=== PATIENT | female | born 1980 | race Caucasian/White ===

== ENCOUNTER 2020-02-09 13:38 | Emergency (ER) | payer SELFPAY ==
--- NOTE | ~2020-02-09 | XR_ITS ---
EXAMINATION: XR chest 2V DATE: 02/09/2020 14:29 INDICATION: Chest tightness. TECHNIQUE: Frontal and lateral views of the chest were obtained. COMPARISON: Chest 2 views 06/11/2019, CT abdomen and pelvis 06/01/2019 FINDINGS: The chest demonstrates clear lungs without pneumonia, pleural effusion, or pneumothorax. Th e heart size is normal. IMPRESSION: 1. No acute cardiopulmonary disease. Reviewed, dictated and finalized at location B.
--- NOTE | ~2020-02-09 | CT_ITS ---
EXAMINATION: CT brain wo con EXAM DATE: 02/09/2020 14:59 INDICATION: Blurry vision, numbness and tingling in both upper extremities. Headache. TECHNIQUE: Spiral CT of the head was performed without contrast. Axial, coronal and sagittal images were reviewed. The dose-length product (DLP) for this examination was 605.33 mGy-cm. The exposure w as tailored according to patient size, and iterative reconstruction (ASIR) was used as additional dos e reduction technique. There is no prior study for comparison. FINDINGS: There is no acute intraparenchymal hemorrhage. No evidence of intraparenchymal brain mass lesion. No evidence of acute infarction. There is no mass effect or midline shift. The ventricles are normal in size. There are no extra-axial collections. There are no acute calvarial fractures. T he orbits are unremarkable. Soft tissue is unremarkable. The visualized sinuses and mastoid air keyon ls are well aerated. IMPRESSION: 1. No acute intracranial findings. Reviewed, dictated and finalized at location A.
[2020-02-09 13:45] VITALS: BP 142/72; PULSE 87; RESP 24; TEMP 36.8; O2SAT 100
--- NOTE | 2020-02-09 13:47 | ECG_ITS ---
Measurements Intervals [place] Rate: 78 P: 69 AR: 132 QRS: 60 QRSD: 89 T: 62 QT: 415 QTc: 474 Interpretive Statements SINUS RHYTHM BORDERLINE ST ABNORMALITY- ANTEROLATERAL LEADS BASELINE WANDER- I, III, AVL, AVF BORDERLINE ECG Electronically Signed On 02-09-2020 14:04:03 CDT by Santi Silva D.O.
[2020-02-09 14:19] LABS: Hematocrit 43.6 % (35.0-49.0); Hemoglobin 14.6 g/dL (12.0-15.0); Mean Corpuscular HGB Conc 33.5 g/dL (32.0-36.0); Mean Corpuscular Hemoglobin 31.3 pg (27.0-31.0); Mean Corpuscular Volume 93.4 fL (78.0-102.0); Mean Platelet Volume 10.7 fl (9.2-11.8); Platelet Count Result 203 K/mm3 (150-420); Red Blood Count 4.67 M/mm3 (4.20-5.40); Red Cell Distribution Width 13.1 % (11.6-14.4); White Blood Count 9.2 K/mm3 (4.8-10.8)
--- NOTE | 2020-02-09 14:21 | ED.ARRPALP ---
HPI - Arrhythmia/Palpitations General Chief Complaint: Arrhythmia/Palpitations Stated Complaint: both hand numb heart racing dizzy Source: patient and family Mode of arrival: ambulatory Limitations: no limitations History of Present Illness HPI narrative: This is a 39-year-old female that presents with her daughter with episodes of palpitations and pairs sees he was over right hand currently having point tenderness and the anterior chest with no shortness of breath no cough no fever chills no nausea vomiting no abdominal pain. Patient had a headache earlier today but currently is not having a headache, does have some blurry vision with no focal neurological deficits. Patient has a history of general anxiety disorder, and has been started on anti anxiety antidepressant medication by her primary care provider which she could not tolerate so currently she is not taking any medications. Symptoms started earlier today was felt some tightness in her chest with no shortness of breath and headache, with paresthesias of her right arm. Currently there is no fever chills, no diarrhea constipation no nausea vomiting she has no flank pain no dysuria. MD complaint: palpitations Onset (ago): hour(s) Duration: intermittent Severity: mild Context: occurred during rest Associated symptoms: chest pain, anxiety and paresthesias Related Data Allergies Allergy/AdvReac Type Severity Reaction Status Date / Time No Known Allergies Allergy Verified 02/09/20 13:48 Review of Systems Review of Systems: All systems reviewed & are unremarkable except as noted in HPI and below PMFSH Past Medical History Medical History Generalized anxiety disorder Exam Const: General: no acute distress and alert Orientation/consciousness: patient oriented x3 HENMT: Head: normal to inspection Eyes: Conjunctivae: conjunctivae normal Pupils: Equal, round and reactive pupils present EOM: EOMs intact bilaterally Direct Ophthalmoscopy: no photophobia Neck: Neck: normal visual inspection, no lymphadenopathy and no meningeal signs Chest: Other: reproducible chest pain left sternal area with palpation Resp: Effort & Inspection: normal respiratory effort Auscultation: clear to auscultation bilaterally Cardio: Rate: regular rate Rhythm: regular rhythm GI: Auscultation: normal bowel sounds : General: Yes no CVA tenderness Back/Spine/Pelvis: Back: no CVA tenderness Skin: General skin exam: normal color Rashes: no rashes Neuro: General: patient oriented x3, moves all extremities, no meningeal signs and no focal motor deficits Cranial nerves: Yes Nystagmus not present Speech: normal speech Gait exam (Neuro): Normal gait present Extrem: General: normal to inspection and no pedal edema Psych: Affect: Anxious affect present Thought content: Yes Normal thought content present Course Course Emergency Course: patient reassessment patient voices new symptoms every time someone walks into the exam room currently she is having a headache recently received IM Toradol, did receive Xanax p.o. feels like anxiety might be marginally improved, discussed hypokalemia with the patient and she voiced that this is nothing new for her, will give a dose of KCl 40 mEq 1 time and will send dose to her pharmacy and advised patient that all her results were relatively normal except for her low potassium. Advised patient to follow-up with her primary care physician as soon as possible for further evaluation and treatment. Vital Signs Vital signs: Vital Signs Temperature 36.8 C 02/09/20 13:45 Pulse Rate 87 02/09/20 13:45 Respiratory Rate 24 H 02/09/20 13:45 Blood Pressure 142/72 H 02/09/20 13:45 Pulse Oximetry 100 02/09/20 13:45 Temperature 36.8 C 02/09/20 13:45 Pulse Rate 80 02/09/20 14:29 Respiratory Rate 16 02/09/20 14:29 Blood Pressure 115/93 H 02/09/20 14:29 Pulse Oximetry 100 02/09/20 1
[2020-02-09] MEDS: ALPRAZolam 0.5 MG TABLET PO (14:28)
[2020-02-09 14:29] VITALS: BP 115/93; PULSE 80; RESP 16; O2SAT 100
[2020-02-09 14:33] LABS: D Dimer 0.22 mg/L (0.19-0.50)
[2020-02-09 14:42] LABS: Alanine Aminotransferase 18 U/L (14-59); Albumin Level 3.8 g/dL (3.4-5.0); Alkaline Phosphatase 56 U/L (46-116); Anion Gap 12 mmol/L (8-16); Aspartate Amino Transferase 16 U/L (15-37); Bilirubin,Total 0.5 mg/dL (0.00-1.00); Blood Urea Nitrogen 9 mg/dL (7-18); Calcium 8.7 mg/dL (8.5-10.1); Carbon Dioxide 23 mmol/L (21-32); Chloride 102 mmol/L (98-108); Estimated Glomerular Filt Rate > 60; Glucose 98 mg/dL (70-99); Osmolality Calculated 282 mOsm/kg (285-295); Sodium 137 mmol/L (136-145); Total Protein 7.1 g/dL (6.4-8.2)
[2020-02-09 14:43] LABS: Troponin I < 0.02 ng/mL (0.00-0.056)
[2020-02-09] MEDS: KETOROLAC (*BKC) 60 MG/2 ML VIAL IM (15:04)
[2020-02-09] MEDS: POTASSIUM CHLORIDE 20 MEQ TABLET 40 MEQ PO (15:17)
[2020-02-09 15:18] VITALS: BP 114/75; PULSE 94; O2SAT 99
== END 2020-02-09 15:23 | disposition home or self-care (01) ==
PROVIDERS: Emergency Provider Emergency Medicine; PCP Internal Medicine
DX: F41.9 Anxiety disorder, unspecified (principal); E87.6 Hypokalemia
CPT/HCPCS: 36415; 70450; 71046; 80053; 84484; 85027; 85380; 93005; 96372; 99284; A9270; J1885

== ENCOUNTER → 2020-09-08 01:11 | Outpatient (CLI) | payer OTHER, SELFPAY ==
[2020-09-08 18:53] LABS: SARS-CoV-2 RNA PCR Negative
== END ==
PROVIDERS: PCP Internal Medicine; Visit Provider Internal Medicine Gastroenterology
DX: Z01.812 Encounter for preprocedural laboratory examination (principal); Z20.822 Contact with and (suspected) exposure to COVID-19
CPT/HCPCS: C9803; U0003; U0005

== ENCOUNTER 2020-09-12 00:22 | Day surgery (SDC) | payer OTHER, SELFPAY ==
[2020-08-27 13:23] VITALS: BMI 26.6
--- NOTE | 2020-09-12 08:36 | WPDANESEPPF ---
Anes - Initial Pre Proc Eval Procedure: Operation Date: 09/12/20 10:00 Proposed Procedures p Esophagogastroduodenoscopy & Colonoscopy - Chay Euceda MD Date/Time: 09/12/20 08:36 Surgeon: Chay Euceda MD Pre Op Diagnosis: Diarrhea, GERD, Rectal Pain Patient Data Age: 39 Gender: F Height: 1.75 m Weight: 81.8 kg Allergies Allergy/AdvReac Type Severity Reaction Status Date / Time No Known Allergies Allergy Verified 09/12/20 08:58 Home Medications Medication Instructions Recorded Confirmed Type alprazolam [Xanax] 0.5 mg PO TID PRN #20 tablet 02/09/20 08/27/20 Rx potassium chloride 20 meq PO BID #10 tablet 02/09/20 08/27/20 Rx Patient hx anesthesia problems: none Family hx anesthesia problems: none PMFSH Past Medical History Medical History (Updated 09/11/20 @ 11:39 by Joaquín Serrato DO) Generalized anxiety disorder GERD without esophagitis Irregular heart beat Overweight (BMI 25.0-29.9) Rectal pain, chronic Tobacco dependence Surgical History Surgical History (Updated 09/11/20 @ 11:39 by Joaquín Serrato DO) History of hysterectomy Social History Social History Smoking packs per day: 0.5 Smoking cigarettes per day: 10.0 Years smoked: 20 Smoking pack-years: 10.00 Smoking status: Current every day smoker Tobacco type: cigarettes Substance use type: does not use Living arrangements: with family Gender identity (if verbalized by the patient): Female Spiritual care concerns: No Anes - Eval Final PreProcedure Day of Procedure 09/12/20 08:36 Patient weight: overweight Heart: regular rate and rhythm Lungs: clear to auscultation and normal air movement Airway: Mallampati scale class II Neurological: alert and oriented Last oral intake: >/= 8 hours ASA classification: II Emergent: no Anesthetic plan: proceed Anesthesia type and monitoring: general GIVS Informed Consent: The patient's anesthetic plan and its attendant risks and benefits were discussed with the patient/family/POA. Questions were solicited and answers provided to the satisfaction of the patient/family/POA.
[2020-09-12 08:59] VITALS: BP 130/85; PULSE 85; RESP 16; TEMP 36.8; O2SAT 100; BMI 26.4
[2020-09-12] MEDS: LACTATED RINGERS 1,000 ML 150 ML IV CONT (09:10)
--- NOTE | 2020-09-12 10:19 | PM.HPGS ---
History of Present Illness History of Present Illness Consent: Risks, benefits, and alternatives have been discussed and questions answered. Patient agrees to proceed with procedure. Chief complaint: Diarrhea, GERD, Rectal Pain Narrative: Vilma Diaz is a 39 year old female with gerd but also chronic diarrhea, last 4 months with rectal discomfort using nsaid's as needed because of pain. Review of Systems Constitutional: Constitutional: Denies headache(s) and Denies weakness Eyes: Eyes: Denies blurry vision ENT: Reports Normal hearing present, Denies headache(s) and Denies neck pain Cardiovascular: Cardiovascular: Denies chest pain and Denies dyspnea Respiratory: Respiratory: Denies dyspnea Gastrointestinal: Gastrointestinal: Reports no additional gastrointestinal complaints Genitourinary: Genitourinary: Denies dysuria Musculoskeletal: Musculoskeletal: Denies neck pain Integumentary/Breasts: Skin/Breast: Denies dry skin Neurologic: Reports Normal hearing present, Denies headache(s) and Denies weakness Psychiatric: Psychiatric: Denies anxiety Endocrine: Endocrine: Denies change in body appearance Hematologic/Lymphatic: Hematologic/Lymphatic: Denies easy bleeding Allergic/Immunologic: Allergic/Immunologic: Denies urticaria PMFSH Past Medical History Medical History (Updated 09/12/20 @ 10:20 by Chay Euceda MD) Diarrhea Generalized anxiety disorder GERD without esophagitis Irregular heart beat Overweight (BMI 25.0-29.9) Rectal pain, chronic Tobacco dependence Surgical History Surgical History (Updated 09/11/20 @ 11:39 by Joaquín Serrato DO) History of hysterectomy Social History Social History Smoking packs per day: 0.5 Smoking cigarettes per day: 10.0 Years smoked: 20 Smoking pack-years: 10.00 Smoking status: Current every day smoker Tobacco type: cigarettes Substance use type: does not use Living arrangements: with family Gender identity (if verbalized by the patient): Female Spiritual care concerns: No Meds Home Medications and Allergies Home Medications Medication Instructions Recorded Confirmed Type alprazolam [Xanax] 0.5 mg PO TID PRN #20 tablet 02/09/20 08/27/20 Rx potassium chloride 20 meq PO BID #10 tablet 02/09/20 08/27/20 Rx Allergies Allergy/AdvReac Type Severity Reaction Status Date / Time No Known Allergies Allergy Verified 09/12/20 08:58 Vital Signs Vital Signs - 24 hr 09/12/20 08:59 Temperature 98.2 F Pulse Rate 85 Respiratory Rate 16 Blood Pressure 130/85 Pulse Oximetry 100 Exam Const: General: comfortable and no acute distress HENMT: General nose exam: Normal nares present Eyes: General: appearance normal, both eyes and all related structures Neck: Neck: no JVD Resp: Auscultation: clear to auscultation bilaterally Cardio: Rate: regular rate Rhythm: regular rhythm GI: Inspection: non-distended GI Palp: Yes Soft to palpation Skin: General skin exam: normal color Neuro: General: gait normal Speech: normal speech Extrem: General: normal to inspection Psych: Mental Status: mental status grossly normal Assessment and Plan Assessment and plan (1) GERD without esophagitis: Code(s): K21.9 - Gastro-esophageal reflux disease without esophagitis Status: Acute Assessment and Plan: egd with bx (2) Rectal pain, chronic: Code(s): K62.89 - Other specified diseases of anus and rectum; G89.29 - Other chronic pain Status: Acute Assessment and Plan: colonoscopy (3) Diarrhea: Code(s): R19.7 - Diarrhea, unspecified Status: Acute Assessment and Plan: assess for celiac, microscopic colitis, etc
[2020-09-12] MEDS: BENZOCAINE (*SP) 60 ML SPRAY CAN (HURRICAINE) 1 SPRAY MUCOUS MEM (10:21)
[2020-09-12 10:50] VITALS: BP 93/49; PULSE 66; RESP 22; O2SAT 100
[2020-09-12 11:00] VITALS: BP 116/65; PULSE 75; RESP 16; O2SAT 100
[2020-09-12 11:10] VITALS: BP 120/75; PULSE 61; RESP 13; O2SAT 100
== END 2020-09-12 11:18 | disposition home or self-care (01) ==
PROVIDERS: PCP Internal Medicine; Visit Provider Internal Medicine Gastroenterology
PROC: 0DJ08ZZ Inspection of Upper Intestinal Tract, Via Natural or Artificial Opening Endoscopic (ICD-10-PCS; CPT 43235; principal; 2020-09-12 10:00)
DX: K52.832 Lymphocytic colitis (principal); K52.831 Collagenous colitis; K62.89 Other specified diseases of anus and rectum; K64.8 Other hemorrhoids; K31.89 Other diseases of stomach and duodenum; K21.9 Gastro-esophageal reflux disease without esophagitis; K63.0 Abscess of intestine; K44.9 Diaphragmatic hernia without obstruction or gangrene; F41.1 Generalized anxiety disorder; F17.210 Nicotine dependence, cigarettes, uncomplicated
CPT/HCPCS: 45380; 43239; 88305; C9803; J2001; J2704; J7120; U0003; U0005

== ENCOUNTER 2023-12-18 10:45 | Outpatient (CLI) | payer OTHER, SELFPAY ==
--- NOTE | ~2023-12-18 | MM_ITS ---
EXAMINATION: MM screening jeovanny BI w zully HISTORY: Screening TECHNIQUE: Craniocaudal and mediolateral oblique 3-D tomosynthesis images were obtained and synthetic 2-D images were generated. CAD analysis was submitted and interpreted. COMPARISON: No prior mammogram is available for comparison at this institution. BREAST PARENCHYMAL COMPOSITION: Not dense: There are scattered areas of fibroglandular density. FINDINGS: There are no suspicious masses, calcifications or architectural distortion in the right frank ast to suggest malignancy. There are asymmetries centered in the upper outer quadrant of the left frank ast. There are no suspicious calcifications or architectural distortion. IMPRESSION: 1. Left breast asymmetries. 2. Additional mammographic views and possible breast ultrasound are recommended. BI-RADS Category 0: Incomplete: Needs additional imaging evaluation. Reviewed, dictated and finalized at location B. IMPRESSION: 1. Left breast asymmetries. 2. Additional mammographic views and possible breast ultrasound are recommended . BI-RADS Category 0: Incomplete: Needs additional imaging evaluation.
[2023-12-18 11:19] LABS: Hemoglobin 13.9 g/dL (12.0-15.0); Mean Corpuscular HGB Conc 33.9 g/dL (32-36); Mean Corpuscular Hemoglobin 31.2 pg (27.0-31.0); Mean Corpuscular Volume 91.9 fL (78.0-102.0); Platelet Count Result 226 K/mm3 (150-420); Red Blood Count 4.46 M/mm3 (4.20-5.40); Red Cell Distribution Width 13.2 % (11.6-14.4); White Blood Count 7.9 K/mm3 (4.8-10.8)
[2023-12-18 11:23] LABS: Appearance Urine Clear (Clear); Bilirubin Urine Negative (Negative); Blood Urine Negative (Negative); Color Urine Light Yellow (Yellow); Glucose Urine UA Negative (Negative); Ketones Urine Negative (Negative); Leukocyte Esterase Ur Negative (Negative); Nitrate Urine Negative (Negative); Protein Urine Negative (Negative); Urobilinogen Urine 0.2 mg/dL (0.2-1.0); pH Urine 6.5 (5.0-8.0)
[2023-12-18 11:24] LABS: Add Urine Microscopic? NO
[2023-12-18 11:58] LABS: Alanine Aminotransferase 26 U/L (14-59); Albumin Level 4.1 g/dL (3.4-5.0); Alkaline Phosphatase 51 U/L (46-116); Anion Gap 8 mmol/L (4-12); Aspartate Amino Transferase 15 U/L (15-37); Bilirubin,Total 0.5 mg/dL (0.00-1.00); Blood Urea Nitrogen 11 mg/dL (7-18); Calcium 9.1 mg/dL (8.5-10.1); Carbon Dioxide 26 mmol/L (21-32); Chloride 103 mmol/L (98-108); Cholesterol 228 mg/dL (0-200); Estimated Glomerular Filt Rate > 60; Free T4 Free Thyroxine 0.98 ng/dL (0.76-1.46); Glucose 92 mg/dL (70-99); HDL Direct 70 mg/dL (40-60); LDL Cholesterol Calculated 144 mg/dL (<130); Osmolality Calculated 283 mOsm/kg (285-295); Potassium 4.1 mmol/L (3.5-5.1); Sodium 137 mmol/L (136-145); Thyroid Stimulating Hormone 2.31 uIU/mL (0.36-3.74); Total Protein 7.1 g/dL (6.4-8.2); Triglycerides 71 mg/dL (0-150)
== END 2023-12-18 10:46 | disposition home or self-care (01) ==
LOC: CHSIMG 10:50
PROVIDERS: PCP Internal Medicine; Visit Provider Internal Medicine
DX: Z00.00 Encounter for general adult medical examination without abnormal findings (principal); Z12.31 Encounter for screening mammogram for malignant neoplasm of breast; R92.8 Other abnormal and inconclusive findings on diagnostic imaging of breast
CPT/HCPCS: 36415; 77063; 77067; 80053; 80061; 81003; 84439; 84443; 85027

== ENCOUNTER 2023-12-25 09:38 | Outpatient (CLI) | payer OTHER, SELFPAY ==
--- NOTE | ~2023-12-25 | MM_ITS ---
EXAMINATION: MM diagnostic jeovanny LT w zully HISTORY: Upper, outer left breast asymmetry TECHNIQUE: Additional 3-D tomosynthesis spot compression images of the left breast were performed and synthetic 2-D images were generated. CAD analysis was submitted and interpreted. COMPARISON: 12/18/2023 FINDINGS: There are scattered fibroglandular densities. The area of asymmetric density at the upper, outer left breast demonstrates relative effacement with spot compression. No persistent mass lesion or suspicious distortion seen. No suspicious microcalcifi cations. IMPRESSION: No mammographic evidence for malignancy. BI-RADS Category 1: Negative Reviewed, dictated and finalized at location .
== END 2023-12-25 09:39 | disposition home or self-care (01) ==
LOC: CHSIMG 09:42
PROVIDERS: PCP Internal Medicine; Visit Provider Internal Medicine
DX: R92.8 Other abnormal and inconclusive findings on diagnostic imaging of breast (principal)
CPT/HCPCS: 77061; 77065; G0279

== ENCOUNTER 2024-04-03 22:34 | Emergency (ER) | payer OTHER, SELFPAY ==
[2024-04-03] VITALS (7 sets, daily range): BP systolic 114–143; BP diastolic 74–79; PULSE 56–83; RESP 16–18; TEMP 36.6; O2SAT 96–100
--- NOTE | ~2024-04-03 | XR_ITS ---
Clinical Indication: Chest pain PA and lateral views of the chest: Comparison: 02/09/2020 Findings: The lungs are clear, without evidence of focal consolidation or pleural effusion. Cardiome diastinal silhouette is within normal limits. Bones and soft tissues are unremarkable. Impression: Normal chest. Reviewed, dictated and finalized at location . Impression: Normal chest.
--- NOTE | ~2024-04-03 | CT_ITS ---
CT of the Abdomen and Pelvis: Indication: Abdominal pain Technique: 2.5 mm axial scans were obtained through the abdomen and pelvis following intravenous adm inistration of 100 cc of Omnipaque 350. Dose reduction technique was used on this scan by utilizing a utomated exposure control and iterative reconstruction technique. The dose-length product (DLP) was 8 09.54 mGy-cm. Findings: Scans through the lung bases are unremarkable. The liver, spleen, pancreas, gallbladder, left adrenal gland, and kidneys are within normal limits. 1 0 mm right adrenal nodule present, indeterminate. No evidence of aortic aneurysm. No lymphadenopathy . No bowel obstruction or bowel wall thickening. There is no evidence to suggest acute appendicitis. Images through the pelvis were performed. Urinary bladder unremarkable. No pelvic mass seen. No ascit es. Impression: No acute abnormality. 10 mm right adrenal nodule, indeterminate, statistically most likely adenoma. Reviewed, dictated and finalized at [facility]. Impression: No acute abnormality. 10 mm right adrenal nodule, indeterminate, statistically most likely adenoma.
--- NOTE | 2024-04-03 22:43 | ECG_ITS ---
Test Date: 2024-04-03 22:49:37 Measurements Intervals [place] Rate: 67 P: 51 [place]: 145 QRS: 15 QRSD: 85 T: 33 QT: 415 QTc: 440 Interpretive Statements SINUS RHYTHM LOW-VOLTAGE OTHERWISE NORMAL ELECTROCARDIOGRAM No previous ECG available for comparison Electronically Signed On 04-04-2024 07:39:19 CDT by Todd Soria M.D.
--- NOTE | 2024-04-03 22:45 | ED.CHESTPAIN ---
HPI - Chest Pain General Chief Complaint: Chest Pain Stated Complaint: Chest and Back Pain Time Seen by Provider: 04/03/24 22:42 Source: patient Mode of arrival: ambulatory Limitations: no limitations History of Present Illness HPI narrative: Patient is a 43-year-old female with mid epigastric pain slightly into the chest area for the past hour. She took something for acid reflux and it did not help. She does have recurrent acid reflux. She has a history of a HIDA scan showing decreased ejection fraction of her gallbladder however they left the gallbladder in at this time without stones noted. Family history is strong for 50s and 60s early heart attacks. Patient has anxiety. MD complaint: chest pain Onset (ago): hour(s) (1) Timing of current episode: constant Prior episodes: Yes Onset: during rest and after eating Pain location: epigastric Pain radiation: back ( Mid to lower back) Severity: moderate Pain scale (0-10): 5 Quality: sharp Relieving factors: nothing Exacerbating factors: nothing Context: other ( patient has history of gallbladder disease) Treatment prior to arrival: none Risk Factors Coronary artery disease risk factors: hyperlipidemia Thoracic aortic dissection risk factors: none Related Data On Oral Contraceptives: No Home Medications Medication Instructions Recorded Confirmed buspirone 5 mg tablet 5 mg PO BID 04/03/24 04/03/24 sertraline 50 mg tablet 50 mg PO DAILY 04/03/24 04/03/24 Allergies Allergy/AdvReac Type Severity Reaction Status Date / Time No Known Allergies Allergy Verified 09/12/20 08:58 Review of Systems Review of Systems: All systems reviewed & are unremarkable except as noted in HPI and below Constitutional: Constitutional: Reports no additional constitutional complaints Eyes: Eyes: Reports no additional eye complaints ENT: Reports system reviewed and no additional complaints, except as documented Cardiovascular: Cardiovascular: Reports no additional cardiovascular complaints Respiratory: Respiratory: Reports no additional respiratory complaints Gastrointestinal: Gastrointestinal: Reports no additional gastrointestinal complaints Genitourinary: Genitourinary: Reports no additional female genitourinary complaints Musculoskeletal: Musculoskeletal: Reports no additional musculoskeletal complaints Integumentary/Breasts: Skin/Breast: Reports system reviewed and no additional complaints, except as docu Neurologic: Reports system reviewed and no additional complaints, except as documented Psychiatric: Psychiatric: Reports no additional psychiatric complaints Endocrine: Endocrine: Reports no additional endocrine complaints Hematologic/Lymphatic: Hematologic/Lymphatic: Reports no additional hematologic/lymphatic complaints Allergic/Immunologic: Allergic/Immunologic: Reports no additional allergic/immunologic complaints PMFSH Past Medical History Medical History Diarrhea Generalized anxiety disorder GERD without esophagitis Irregular heart beat Overweight (BMI 25.0-29.9) Rectal pain, chronic Tobacco dependence Surgical History Surgical History History of hysterectomy Social History Social History Smoking packs per day: 0.5 Smoking cigarettes per day: 10.0 Years smoked: 20 Smoking pack-years: 10.00 Smoking status: Current every day smoker Tobacco type: cigarettes Substance use type: does not use Living arrangements: with family Gender identity (if verbalized by the patient): Female Spiritual care concerns: No Exam Const: General: healthy appearing Nutritional Appearance: well nourished Orientation/consciousness: patient oriented x3 HENMT: Head: normal to inspection Ears: external ears normal Face/Nose/Sinus: Normal external nose present Eyes: Conjunctivae: conjuncti
[2024-04-03] MEDS: KETOROLAC 15 MG/ML VIAL (*BKC) IV PUSH (23:03)
[2024-04-03 23:16] LABS: Basophils Absolute Auto 0.06 K/mm3 (0.00-0.10); Basophils Percent Auto 0.8 % (0.0-1.0); Eosinophils Absolute Auto 0.41 K/mm3 (0.02-0.50); Eosinophils Percent Auto 5.7 % (1.0-6.0); Hematocrit 36.7 % (35.0-49.0); Hemoglobin 12.5 g/dL (12.0-15.0); Immature Granulocyte Absolute 0.02 K/mm3 (0.00-0.00); Immature Granulocyte Percent A 0.3 % (0.0-0.0); Lymphocytes Absolute Auto 2.67 K/mm3 (1.10-4.50); Lymphocytes Percent Auto 37.1 % (18.0-42.0); Mean Corpuscular HGB Conc 34.1 g/dL (32-36); Mean Corpuscular Hemoglobin 30.5 pg (27.0-31.0); Mean Corpuscular Volume 89.5 fL (78.0-102.0); Mean Platelet Volume 10.5 fl (9.2-11.8); Monocytes Absolute Auto 0.67 K/mm3 (0.10-0.90); Monocytes Percent Auto 9.3 % (2.0-11.0); Neutrophils Absolute Auto 3.36 K/mm3 (1.70-7.20); Neutrophils Percent Auto 46.8 % (50.0-70.0); Platelet Count Result 228 K/mm3 (150-420); Red Cell Distribution Width 12.9 % (11.6-14.4); White Blood Count 7.2 K/mm3 (4.8-10.8)
[2024-04-03 23:25] LABS: Add Urine Microscopic? NO; Appearance Urine Clear (Clear); Bilirubin Urine Negative (Negative); Blood Urine Negative (Negative); Color Urine Light Yellow (Yellow); Glucose Urine UA Negative (Negative); Ketones Urine Negative (Negative); Leukocyte Esterase Ur Negative LEU/UL (Negative); Nitrate Urine Negative (Negative); Protein Urine Negative (Negative); Specific Grav Ur <= 1.005 (1.010-1.020); Urobilinogen Urine 0.2 mg/dL (0.2-1.0)
[2024-04-03 23:33] LABS: Lactic Acid Reflex 0.5 mmol/L (0.4-2.0)
[2024-04-03 23:35] LABS: Alanine Aminotransferase 18 U/L (14-59); Albumin Level 3.6 g/dL (3.4-5.0); Alkaline Phosphatase 87 U/L (46-116); Anion Gap 7 mmol/L (4-12); Aspartate Amino Transferase 12 U/L (15-37); Bilirubin,Total 0.3 mg/dL (0.00-1.00); Blood Urea Nitrogen 13 mg/dL (7-18); Calcium 8.9 mg/dL (8.5-10.1); Carbon Dioxide 25 mmol/L (21-32); Chloride 105 mmol/L (98-108); Estimated CRCL calculation 92 ml/min; Estimated Glomerular Filt Rate > 60; Glucose 102 mg/dL (70-99); Lipase 48 U/L (16-77); NT Pro B Type Natriuretic Pept 115 pg/mL (0-125); Osmolality Calculated 284 mOsm/kg (285-295); Partial Thromboplastin Time 27.3 Sec (23.9-30.70); Potassium 3.4 mmol/L (3.5-5.1); Prothrombin Time 11.1 Seconds (9.50-12.1); Sodium 137 mmol/L (136-145); Total Protein 6.4 g/dL (6.4-8.2); Troponin I 4.3 ng/L (0.00-60.4)
[2024-04-04 00:06] VITALS: BP 131/77; PULSE 68; RESP 15; O2SAT 100
--- NOTE | 2024-04-04 00:09 | PC.NURSE ---
Pt resting, no c/o at this time, VSS, continuing to monitor, will await CT scan report, lights dimmed, call montes at side.
[2024-04-04 00:31] VITALS: BP 113/68; PULSE 53; RESP 15; O2SAT 99
[2024-04-04] MEDS: POTASSIUM CHLORIDE 20 MEQ ER TABLET PO (01:47)
[2024-04-04 01:51] VITALS: BP 112/68; PULSE 74; RESP 16; TEMP 36.6; O2SAT 100
== END 2024-04-04 01:51 | disposition home or self-care (01) ==
PROVIDERS: Emergency Provider Emergency Medicine; PCP Internal Medicine
DX: R10.13 Epigastric pain (principal); F17.210 Nicotine dependence, cigarettes, uncomplicated; Z79.899 Other long term (current) drug therapy
CPT/HCPCS: 36415; 71046; 74177; 80053; 81003; 83605; 83690; 83880; 84484; 85025; 85610; 85730; 93005; 96374; 99284; A9270; J1885; Q9967

== ENCOUNTER 2024-06-07 17:10 | Outpatient (CLI) | payer OTHER, SELFPAY ==
[2024-06-07 17:22] LABS: Basophils Absolute Auto 0.05 K/mm3 (0.00-0.10); Basophils Percent Auto 0.7 % (0.0-1.0); Eosinophils Percent Auto 2.7 % (1.0-6.0); Hematocrit 37.3 % (35.0-49.0); Hemoglobin 12.5 g/dL (12.0-15.0); Immature Granulocyte Absolute 0.02 K/mm3 (0.00-0.00); Immature Granulocyte Percent A 0.3 % (0.0-0.0); Lymphocytes Absolute Auto 2.29 K/mm3 (1.10-4.50); Lymphocytes Percent Auto 30.4 % (18.0-42.0); Mean Corpuscular HGB Conc 33.5 g/dL (32-36); Mean Corpuscular Hemoglobin 30.2 pg (27.0-31.0); Mean Corpuscular Volume 90.1 fL (78.0-102.0); Mean Platelet Volume 10.2 fl (9.2-11.8); Monocytes Absolute Auto 0.73 K/mm3 (0.10-0.90); Monocytes Percent Auto 9.7 % (2.0-11.0); Neutrophils Absolute Auto 4.24 K/mm3 (1.70-7.20); Neutrophils Percent Auto 56.2 % (50.0-70.0); Platelet Count Result 220 K/mm3 (150-420); Red Blood Count 4.14 M/mm3 (4.20-5.40); Red Cell Distribution Width 13.2 % (11.6-14.4); White Blood Count 7.5 K/mm3 (4.8-10.8)
[2024-06-07 18:17] LABS: Alanine Aminotransferase 24 U/L (14-59); Albumin Level 3.8 g/dL (3.4-5.0); Alkaline Phosphatase 71 U/L (46-116); Anion Gap 8 mmol/L (4-12); Aspartate Amino Transferase 14 U/L (15-37); Bilirubin,Total 0.3 mg/dL (0.00-1.00); Blood Urea Nitrogen 9 mg/dL (7-18); Calcium 8.8 mg/dL (8.5-10.1); Carbon Dioxide 28 mmol/L (21-32); Chloride 104 mmol/L (98-108); Estimated Glomerular Filt Rate > 60; Glucose 88 mg/dL (70-99); Osmolality Calculated 287 mOsm/kg (285-295); Potassium 3.9 mmol/L (3.5-5.1); Sodium 140 mmol/L (136-145); Total Protein 6.6 g/dL (6.4-8.2)
== END 2024-06-07 17:11 | disposition home or self-care (01) ==
LOC: CHSLAB 17:11
PROVIDERS: PCP Internal Medicine; Visit Provider Internal Medicine
DX: R10.9 Unspecified abdominal pain (principal)
CPT/HCPCS: 36415; 80053; 83605; 85025

== ENCOUNTER 2024-06-07 19:38 | Emergency (ER) | payer OTHER, SELFPAY ==
--- NOTE | ~2024-06-07 | CT_ITS ---
EXAMINATION: CT abdomen pelvis wo con DATE: 06/07/2024 20:35 INDICATION: RIGHT flank pain/NAUSEA TECHNIQUE: Computed tomography (CT) of the abdomen and pelvis was performed without intravenous contr ast. Automated exposure control and iterative reconstruction technique were employed. The dose-length product was 814.31 mGy-cm. COMPARISON: 04/04/2024. FINDINGS: Lower thorax: Unremarkable Liver: Normal. Biliary/Gallbladder: Gallbladder is normal. No bile duct dilation. Pancreas: No mass or duct dilation. Spleen: Normal. Adrenals: Right adrenal adenoma. Kidneys: No suspicious mass, obstructing stone, or hydronephrosis. Tiny left midpole AML. Punctate bi lateral calcifications. GI tract: No small or large bowel dilation. Normal appendix. Mesentery/Peritoneum: No ascites, mass, or free air. Retroperitoneum: No mass. Atherosclerotic abdominal aortic and/or arterial calcifications. Pelvis: Absent uterus. Normal urinary bladder. 8.6 x 5.5 cm multiloculated cystic and solid right adn exal lesion, likely associated with the right ovary. Cystic thin-walled structure in the left adnexa extending to the midline deep pelvis, measuring up to 7.6 cm, with thin wild, conforming to the shap e of adjacent structures, likely associated with the left ovary. Soft Tissues: Soft tissues and body wall unremarkable. Bones: No acute osseous finding. IMPRESSION: 8.6 cm multiloculated cystic and solid right adnexal mass. An ovarian mass considered most likely. Tu iglesia-ovarian abscess considered less likely given the lack of inflammatory change. 7.6 cm cystic structure in the left and midline pelvis possibly associated with left ovary, may repre sent a peritoneal inclusion cyst. Recommend gynecology or gynecology-oncology consultation. Consider pelvic MRI without and with contra st. Reviewed, dictated and finalized at location K. NILE PROBATION OFFICER IMPRESSION: 8.6 cm multiloculated cystic and solid right adnexal mass. An ovarian mass cons idered most likely. Tubo-ovarian abscess considered less likely given the lack of inflammatory change. 7.6 cm cystic structure in the left and midline pelvis possibly associated with left ovary, may represent a peritoneal inclusion cyst. Recommend gynecology or gynecology-oncology consultation. Consider pelvic MRI w ithout and with contrast.
--- NOTE | 2024-06-07 20:04 | ED_ITS ---
HPI - Abdominal Pain General Chief Complaint: Urogenital-Female Stated Complaint: abd pain Time Seen by Provider: 06/07/24 19:55 Source: patient Mode of arrival: ambulatory Limitations: no limitations History of Present Illness HPI narrative: 43 year old female presents to the Emergency Department complaining of right lower flank pain to right lower abdomen. Onset today. No prior history of. No vomiting, diarrhea, constipation, urinary tract symptoms. Had OP labs and thought to possibly have kidney stone per patient. MD elicited complaint: abdominal pain and flank pain Onset (ago): hour(s) Pain Consistency: constant Location: RLQ and R flank Severity: moderate Exacerbating factors: nothing Relieving factors: nothing Related Data Patient : No Home Medications ?Medication ?Instructions ?Recorded ?Confirmed ?Last Taken ?Type buspirone 5 mg tablet 5 mg PO BID 04/03/24 04/03/24 Unknown History sertraline 50 mg tablet 50 mg PO DAILY 04/03/24 04/03/24 Unknown History Allergies Allergy/AdvReac Type Severity Reaction Status Date / Time No Known Allergies Allergy Verified 09/12/20 08:58 Review of Systems Review of Systems: All systems reviewed & are unremarkable except as noted in HPI and below Constitutional: Constitutional: Reports as per HPI, Denies chills and Denies fever(s) Eyes: Eyes: Reports as per HPI ENT: Reports system reviewed and no additional complaints, except as documented Cardiovascular: Cardiovascular: Reports as per HPI Respiratory: Respiratory: Reports as per HPI Gastrointestinal: Gastrointestinal: Reports as per HPI, Reports abdominal pain, Denies constipation, Denies diarrhea, Denies nausea and Denies vomiting Genitourinary: Genitourinary: Reports no additional female genitourinary complaints and Reports flank pain Musculoskeletal: Musculoskeletal: Reports no additional musculoskeletal complaints Integumentary/Breasts: Skin/Breast: Reports system reviewed and no additional complaints, except as docu Neurologic: Reports system reviewed and no additional complaints, except as documented Psychiatric: Psychiatric: Reports no additional psychiatric complaints Endocrine: Endocrine: Reports no additional endocrine complaints Hematologic/Lymphatic: Hematologic/Lymphatic: Reports no additional hematologic/lymphatic complaints Allergic/Immunologic: Allergic/Immunologic: Reports no additional allergic/immunologic complaints PMFSH Past Medical History Medical History Diarrhea Irregular heart beat Rectal pain, chronic GERD without esophagitis Overweight (BMI 25.0-29.9) Tobacco dependence Generalized anxiety disorder Surgical History Surgical History History of hysterectomy Social History Social History Smoking packs per day: 0.5 Smoking cigarettes per day: 10.0 Years smoked: 20 Smoking pack-years: 10.00 Smoking status: Current every day smoker Tobacco type: cigarettes Substance use type: does not use Living arrangements: with family Gender identity (if verbalized by the patient): Female Spiritual care concerns: No Exam Const: General: healthy appearing Nutritional Appearance: well nourished Orientation/consciousness: patient oriented x3 Limitations: no limitations Other: mild to moderate distress HENMT: Head: normal to inspection Ears: external ears normal Face/Nose/Sinus: Normal external nose present Face and sinus: normal facial exam Mouth: Yes Normal oral and palatal mucosa present Eyes: Conjunctivae: conjunctivae normal Pupils: Equal, round and reactive pupils present EOM: EOMs intact bilaterally Direct Ophthalmoscopy: no photophobia Neck: Neck: normal visual inspection Chest: Chest palpation & inspection: normal inspection of the chest Resp: Effort & Inspection: normal respiratory effort Auscultation: clear to auscultation bilaterally Cardio: Rate: regular rate Rhythm: regular rhythm GI: Inspection: non-distended GI Palp: Yes Soft to palpation and No Tenderness to palpation present (GI) : General: Yes bladder normal to palpation Back/Spine/Pelvis: Back: no CVA tenderness Skin: General skin exam: normal color Rashes: no rashes Neuro: General: patient oriented x3 and moves all extremities Speech: normal speech Gait exam (Neuro): Normal gait present Other: grossly normal Extrem: General: normal to inspection Psych: Mental Status: mental status grossly normal Course Course Emergency Course: 43 y/o female presents to the ED c/o right lower flank and abdominal pain. Onset today. No prior history of. Saw PCP and had OP lab. PE: mod distress, no CVA tenderness to percussion or abdominal tenderness to palpation OP Lab: CBC: H/H 12.5/37.4, Plt 220; wbc 7.5 with 56 S, 30 L, 10 M CMP: Na 140, K 3.9, Cl 104, CO2 28, Glc 88, BUN 9, Cr 0.75; LFT's normal Tx: NS w/o, Zofran 4 mg IVP, Dilaudid 1 mg IVP UA: CT Abd/Pelvis: 8.6 cm multiloculated cystic /solid R adnexal mass [ovarian mass considered most likely and tubo-ovarian abscess less likely, given lack of inflammatory change]. 7.6 cm cystic structure in the left and midline pelvis [possibly assoc L ovary] may represent a peritoneal inclusion cyst. ([id number]) [place] contacted for DISHWASHER BUSSER consult ([id number]) Voice mail message left for Dr. De La Cruz (DISHWASHER BUSSER) ([id number]) discussed with Dr. De La Cruz. Will transfer patient to [place] and admit for work up. ([id number]) Bed assigned [[id number]]. EMS notified of transfer Transfer Transfered to: [place] Transportation: ALS Transfer rationale: DISHWASHER BUSSER evaluation and work up Accepting physician: Jono MDM - Abdominal Pain MDM Narrative Medical decision making narrative: Discussed with Dr. De La Cruz (Boring And Filling Machine Operator). Report given and discussed potential causes and further w/u. Since patient's pain is not yet controlled, she will be transferred to [place] for admission and work up. She has an 8.6 cm cystic /solid mas which most likely is ovarian mass. Due to the more sudden onset, would consider torsion secondary to torque from mass. She also has 7.6 cm cystic structure that may be associated with left ovary. Differential Diagnosis Differential diagnosis: Likely abdominal pain and other (ovarian mass, tubo- ovarian abscess, ovarian torsion, ovarian cyst) Medical Records Attestation: I reviewed the patient's medical records. Lab Data Attestation: I reviewed the patient's lab results. Labs: Lab Results 06/07/24 Range/Units 23:20 Urine Color Pending Urine Appearance Pending Urine pH Pending Ur Specific [place] Pending Urine Protein Pending Urine Glucose (UA) Pending Urine Ketones Pending Ur Blood (Man) Pending Urine Nitrate Pending Urine Bilirubin Pending Urine Urobilinogen Pending Ur Leukocyte Esterase Pending Imaging Data Radiologist's impression: ITS Impressions Abdomen/Pelvis CT 06/07/24 20:43 IMPRESSION: 8.6 cm multiloculated cystic and solid right adnexal mass. An ovarian mass considered most likely. Tubo-ovarian abscess considered less likely given the lack of inflammatory change. 7.6 cm cystic structure in the left and midline pelvis possibly associated with left ovary, may represent a peritoneal inclusion cyst. Recommend gynecology or gynecology-oncology consultation. Consider pelvic MRI without and with contrast. Discharge Plan Discharge Clinical Impression: Abdominal pain in female patient, Mass of right ovary Patient Disposition: Acute Care Hospital Condition: Stable Patient Language: German Prescriptions: No Action buspirone 5 mg Tablet 5 mg PO BID sertraline 50 mg tablet 50 mg PO DAILY Follow-up/Referrals: Elmer De La Cruz MD [Physician] - Ibrahima Phipps MD [Primary Care Provider] - Time of Disposition: 22:35
[2024-06-07] MEDS: ONDANSETRON INJ 4 MG/2 ML VIAL IV PUSH (20:38)
[2024-06-07] MEDS: HYDROmorphone HCL INJ (*CRX) 2 MG/ML VIAL 1 MG IV PUSH ×2 (20:39→22:49)
[2024-06-07] MEDS: SODIUM CHLORIDE 0.9% IV 1,000 ML 999 ML IV CONT (20:40)
[2024-06-07] MEDS: KETOROLAC 30 MG/ML VIAL (*BKC) IV PUSH (21:51)
[2024-06-07 23:19] VITALS: TEMP 37
[2024-06-07 23:28] LABS: Add Urine Microscopic? NO; Appearance Urine Clear (Clear); Bilirubin Urine Negative (Negative); Blood Urine Negative (Negative); Color Urine Light Yellow (Yellow); Glucose Urine UA Negative (Negative); Ketones Urine 1+ (Negative); Leukocyte Esterase Ur Negative (Negative); Nitrate Urine Negative (Negative); Protein Urine Negative (Negative); Specific Grav Ur >= 1.030 (1.010-1.020); Urobilinogen Urine 0.2 mg/dL (0.2-1.0); pH Urine 5.5 (5.0-8.0)
[2024-06-07 23:40] VITALS: BP 128/67; PULSE 66; RESP 18; TEMP 37; O2SAT 100
== END 2024-06-07 23:59 | disposition short-term general hospital (02) ==
PROVIDERS: Emergency Provider Emergency Medicine; PCP Internal Medicine
DX: R10.31 Right lower quadrant pain (principal); N83.8 Other noninflammatory disorders of ovary, fallopian tube and broad ligament; F17.210 Nicotine dependence, cigarettes, uncomplicated
CPT/HCPCS: 74176; 81003; 96361; 96374; 96375; 99285; J1171; J1885; J2405; J7030

== ENCOUNTER 2024-06-08 01:38 | Observation (INO) | payer OTHER, SELFPAY ==
--- NOTE | ~2024-06-08 | US_ITS ---
US pelvic complete w TV Ordering provider: Elmer De La Cruz MD History: . ovarian mass . Comparison: None. Technique: Transabdominal and endovaginal ultrasound of the pelvis (Doppler ultrasound interrogation techniques used as needed for this exam.) FINDINGS: UTERUS: Removed surgically. CUL DE SAC: Significant free fluid is seen in the pelvis. Complex tubular structure is seen in the right adnexa which measures 11.3 x 4.7 x 5.3 which is most l ikely a mass. present. Cyst in the left adnexa with septation is seen measuring 4.4 x 3.9 x 3.3 cm. IMPRESSION: Right adnexal mass. Left adnexal cystic mass patient's. Ascites. Reviewed, dictated and finalized at location A. COAT MILL OPERATOR
[2024-06-08 00:45] VITALS: BP 137/84; PULSE 63; RESP 16; TEMP 36.4; O2SAT 100
[2024-06-08 00:51] VITALS: BMI 31.1
--- NOTE | 2024-06-08 01:21 | ADMGEN ---
This patient, Vilma Mariee, was admitted to [address] [facility] Surg Room 310-01. Patient/family oriented to hospital policies and general routines including ID bracelet, bed and alarms, visiting hours, pain management, procedures, bathroom and other care routines, personal items, smoking policy, room service/diet, and visiting hours. Information on how to activate the Rapid Response Team has been discussed. Patient/Family are encouraged to report perceived risks to care and to ask questions if they do not understand what they are told or what they should do.
--- NOTE | 2024-06-08 01:22 | PC.NURSE ---
Patient admission complete; report to TITO Cruz.
[2024-06-08] MEDS: KETOROLAC 30 MG/ML VIAL (*BKC) IV PUSH ×4 (02:33→20:31)
[2024-06-08] MEDS: DEXTROSE 5%/0.45% SOD CHL 1,000 ML 125 ML IV CONT ×3 (02:36→20:29)
[2024-06-08 04:40] VITALS: BP 139/84; PULSE 53; RESP 16; TEMP 36.2; O2SAT 100
[2024-06-08] MEDS: MORPHINE SULFATE (*CRX) 2 MG/ML INJ IV PUSH ×6 (05:00→15:08)
--- NOTE | 2024-06-08 13:45 | P.HP_ITS ---
H&P: HPI History of Present Illness Date/Time: 06/08/24 0910 Chief Complaint: Pain Narrative: 43 y/o who has not seen a INDUSTRIAL SERVICER for several years. She had a sudden onset of pain in the RLQ and went to [place] ED. On CT was found to have multiloculated solid and cystic 8.6 right adnexal lesion, and another thin- walled cystic structure measuring 7.6 cm in the left adnexa. There was no obvious free fluid. No pathologically enlarged lymph nodes. Significantly, she had a CT on 04/03/24 that showed no pelvic mass. The ED physician contacted me, as I am the on-call INDUSTRIAL SERVICER for walk-in patients, and the patient did not want to resume care with [facility] [place]. She had had a vaginal hysterectomy with Dr. Spring years ago for what sounds like severe cervical dysplasia, and has not followed up for Pap testing subsequently. She has no vaginal bleeding. Pain has been improved with IV morphine overnight. Review of Systems Review of Systems: All systems reviewed & are unremarkable except as noted in HPI and below PMFSH Past Medical History Medical History Diarrhea Irregular heart beat Rectal pain, chronic GERD without esophagitis Overweight (BMI 25.0-29.9) Tobacco dependence Generalized anxiety disorder Surgical History Surgical History History of hysterectomy Family History Family History Grandparent Cancer Father Acute myocardial infarction Mother Acute myocardial infarction Social History Social History Smoking packs per day: 0.5 Smoking cigarettes per day: 10.0 Years smoked: 20 Smoking pack-years: 10.00 Smoking status: Former smoker Tobacco type: cigarettes and e-cigarettes/vaping Additional smoking assessment comments: former use of cigarettes; current use of vape Substance use type: does not use Do You Feel Safe in your Home?: No Lack of Transportation: No Lack of Food: Never True Current Housing: I Do Not Have Housing Concerned About Future Housing: No Difficulty Paying Gas/Electric Bills: No Difficulty Paying for Meds: No Currently Unemployed: No Education: High School Diploma/GED Difficulty w/ Childcare or Family Care: No Living arrangements: with family Gender identity (if verbalized by the patient): Female Spiritual care concerns: No Meds Home Medications and Allergies Home Medications ?Medication ?Instructions ?Recorded ?Confirmed ?Type buspirone 5 mg tablet 5 mg PO BID PRN anxiety 04/03/24 06/08/24 History sertraline 50 mg tablet 50 mg PO DAILY 04/03/24 06/08/24 History Allergies Allergy/AdvReac Type Severity Reaction Status Date / Time No Known Allergies Allergy Verified 06/08/24 01:15 Vital Signs Vital Signs - 24 hr 06/08/24 00:45 06/08/24 02:02 06/08/24 04:40 Temperature 36.4 C 36.2 C L Pulse Rate 63 53 L Respiratory Rate 16 16 Blood Pressure 137/84 139/84 Pulse Oximetry 100 100 Oxygen Delivery Room Air 06/08/24 08:05 Temperature Pulse Rate Respiratory Rate Blood Pressure Pulse Oximetry Oxygen Delivery Room Air Exam Const: Orientation/consciousness: patient oriented x3 Other: Well-developed, well-nourished female in no acute distress. Neck: Thyroid: thyroid normal Lymphatic: no lymphadenopathy noted (in neck, axilla or inguinal nodes) Resp: Effort & Inspection: normal respiratory effort Auscultation: clear to auscultation bilaterally Cardio: Rate: regular rate Rhythm: regular rhythm Heart sounds: S1 normal heart sound present and S2 normal heart sound present GI: Other: ABD: Soft, nondistended. Somewhat tender in RLQ, but no guarding or rebound tenderness. No hepatosplenomegaly. : General: Yes no CVA tenderness Other: Deferred, as she is in the hospital bed. Back/Spine/Pelvis: Back: no CVA tenderness Skin: General skin exam: normal color and no rashes or lesions noted Neuro: General: patient oriented x3 Extrem: Other: Extremities: nontender with no edema Psych: Mental Status: mental status grossly normal Affect: normal affect Assessment and Plan Assessment and plan (1) Adnexal mass: Code(s): N94.89 - Other specified conditions associated with female genital organs and menstrual cycle Status: Acute Assessment and Plan: A: Bilateral adnexal cystic masses that appear to have arisen very rapidly, in the next 1.5 months, in the setting of RLQ pain. P: Pelvic ultrasound to evaluate the masses and doppler flow to the adnexa. (2) Adnexal pain: Code(s): R10.2 - Pelvic and perineal pain Status: Acute
[2024-06-08 14:42] VITALS: BP 112/69; PULSE 64; RESP 16; TEMP 36.5; O2SAT 100
--- NOTE | 2024-06-08 17:11 | P.PNOB_ITS ---
ONLINE MERCHANDISER - A/P Assessment and plan (1) Adnexal pain: Code(s): R10.2 - Pelvic and perineal pain Status: Acute (2) Adnexal mass: Code(s): N94.89 - Other specified conditions associated with female genital organs and menstrual cycle Status: Acute Time Spent With Patient Time with patient: 15 - 25 minutes ONLINE MERCHANDISER- PN:Subj Post-Op Subjective Date/time seen: 06/08/24 17:11 She gets intermittent relief with IV morphine 2mg every 2 hours. However, she s ays she is hungry. AVSS ABD soft, mildly tender in right lower quadrant, but still no guarding or rebound tenderness. Pelvic ultrasound was delayed today, but was eventually performed this afterno on. The sparse reading mentions a large, cystic right sided pelvic mass, a small left adnexal cyst, and ascites. There is no mention of Doppler flow. I phoned radiology, but was unable to glean more detail. I reviewed the images myself, and there is large free fluid. Doppler flow evaluation was performed and there appears to be blood flow to both adnexa. A: Large right adnexal cyst, and a smaller left adnexal cyst, both having developed in the last 2 months, now with pain and large free fluid. Clinically there is no evidence of infection, and I have low clinical suspicion for torsion at this time. Pain is under better control. P: Switch to PO pain meds and observe overnight, with the hope of sending her home tomorrow to f/u outpatient. The patient and her are in agreement. She is excited to get to eat. ONLINE MERCHANDISER - PN: Obj Data Vital Signs Vital Signs: Vital Signs - 24 hr 06/08/24 00:45 06/08/24 02:02 06/08/24 04:40 Temperature 36.4 C 36.2 C L Pulse Rate 63 53 L Respiratory Rate 16 16 Blood Pressure 137/84 139/84 Pulse Oximetry 100 100 Oxygen Delivery Room Air 06/08/24 08:05 06/08/24 14:42 Temperature 36.5 C Pulse Rate 64 Respiratory Rate 16 Blood Pressure 112/69 Pulse Oximetry 100 Oxygen Delivery Room Air Intake/Output Intake/Output: Intake & Output 06/05/24 06/06/24 06/07/24 06/08/24 23:59 23:59 23:59 23:59 Intake Total 1075 Balance 1075 Meds/Results Medications: Active Medications Generic Name Dose Route Start Last Admin Trade Name Freq PRN Reason Stop Dose Admin Buspirone HCl 5 mg 06/08/24 17:10 Buspirone Hcl 5 Mg Tablet PO BID PRN anxiety Dextrose/Sodium Chloride 1,000 mls @ 125 mls/hr 06/08/24 02:10 06/08/24 10:37 Dextrose 5% Sodium Chloride 0.45% IV CONT 125 mls/hr .Q8H KARINA Administration Ibuprofen 600 mg 06/08/24 17:08 Ibuprofen 600 Mg Tablet PO Q6H PRN Cramping Ketorolac Tromethamine 30 mg 06/08/24 01:55 06/08/24 15:08 Ketorolac 30 Mg/Ml Vial (*Bkc) IV PUSH 30 mg Q6H KARINA Administration Morphine Sulfate 2 mg 06/08/24 01:51 06/08/24 15:08 Morphine Sulfate (*Crx) 2 Mg/Ml Inj IV PUSH 2 mg Q2H PRN Administration Pain Rated 7-10 Ondansetron HCl 4 mg 06/08/24 01:51 Ondansetron Inj 4 Mg/2 Ml Vial IV PUSH Q4H PRN Nausea And Vomiting Oxycodone/Acetaminophen 1 tablet 06/08/24 17:08 Oxycodone/Acetaminophen (*Crx) 5-325 Mg Tablet PO Q4H PRN Pain Rated 4-6 Oxycodone/Acetaminophen 1 tab 06/08/24 17:08 Oxycodone/Acetaminophen (*Crx) 10-325 Mg Tablet PO Q4H PRN Pain Rated 7-10 Sertraline HCl 50 mg 06/09/24 09:00 Sertraline Hcl 50 Mg Tablet PO DAILY [facility] Radiology Results: ITS Impressions Pelvic/Transvag US 06/08/24 14:59 IMPRESSION: Right adnexal mass. Left adnexal cystic mass patient's. Ascites.
[2024-06-08] MEDS: oxyCODONE/ACETAMINOPHEN (*CRX) 10-325 MG TABLET 1 TAB PO (18:10)
[2024-06-08 20:00] VITALS: PULSE 64; RESP 16; O2SAT 100
[2024-06-08 22:26] VITALS: BP 109/62; PULSE 69; RESP 20; TEMP 36.3; O2SAT 98
[2024-06-09] MEDS: oxyCODONE/ACETAMINOPHEN (*CRX) 10-325 MG TABLET 1 TAB PO ×3 (00:52→09:36)
[2024-06-09] MEDS: DEXTROSE 5%/0.45% SOD CHL 1,000 ML 125 ML IV CONT (04:55)
[2024-06-09 06:00] VITALS: BP 129/66; PULSE 59; RESP 20; TEMP 36.2; O2SAT 99
--- NOTE | 2024-06-09 09:03 | PM.GYNPNOP ---
CARE CONSULTANT - A/P Assessment and plan (1) Adnexal pain: Code(s): R10.2 - Pelvic and perineal pain Status: Acute (2) Adnexal mass: Code(s): N94.89 - Other specified conditions associated with female genital organs and menstrual cycle Status: Acute Time Spent With Patient Time with patient: 15 - 25 minutes CARE CONSULTANT- PN:Subj Post-Op Subjective Date/time seen: 06/09/24 09:03 Pain fairly well controlled on Percocet and ibuprofen. Tolerated regular diet last night. Exam Narrative: AVSS ABD soft, mildly tender in right lower quadrant, again with no guarding or rebound tenderness. EXT nontender A: RLQ pain associated with large adnexal cyst. Clinically stable. P: Home on oral pain meds to f/u as outpatient. Reviewed instructions and precautions in detail. CARE CONSULTANT - PN: Obj Data Vital Signs Vital Signs: Vital Signs - 24 hr 06/08/24 14:42 06/08/24 20:00 06/08/24 22:26 Temperature 36.5 C 36.3 C L Pulse Rate 64 64 69 Respiratory Rate 16 16 20 Blood Pressure 112/69 109/62 Pulse Oximetry 100 100 98 Oxygen Delivery Room Air 06/09/24 06:00 Temperature 36.2 C L Pulse Rate 59 L Respiratory Rate 20 Blood Pressure 129/66 Pulse Oximetry 99 Oxygen Delivery Intake/Output Intake/Output: Intake & Output 06/06/24 06/07/24 06/08/24 06/09/24 23:59 23:59 23:59 23:59 Intake Total 2685 1500 Balance 2685 1500 Meds/Results Medications: Active Medications Generic Name Dose Route Start Last Admin Trade Name Freq PRN Reason Stop Dose Admin Buspirone HCl 5 mg 06/08/24 17:10 Buspirone Hcl 5 Mg Tablet PO BID PRN anxiety Dextrose/Sodium Chloride 1,000 mls @ 125 mls/hr 06/08/24 02:10 06/09/24 04:55 Dextrose 5% Sodium Chloride 0.45% IV CONT 125 mls/hr .Q8H KARINA Administration Ibuprofen 600 mg 06/08/24 17:08 Ibuprofen 600 Mg Tablet PO Q6H PRN Cramping Ketorolac Tromethamine 30 mg 06/08/24 01:55 06/09/24 04:55 Ketorolac 30 Mg/Ml Vial (*Bkc) IV PUSH Not Given Q6H [facility] Morphine Sulfate 2 mg 06/08/24 01:51 06/08/24 15:08 Morphine Sulfate (*Crx) 2 Mg/Ml Inj IV PUSH 2 mg Q2H PRN Administration Pain Rated 7-10 Ondansetron HCl 4 mg 06/08/24 01:51 Ondansetron Inj 4 Mg/2 Ml Vial IV PUSH Q4H PRN Nausea And Vomiting Oxycodone/Acetaminophen 1 tablet 06/08/24 17:08 Oxycodone/Acetaminophen (*Crx) 5-325 Mg Tablet PO Q4H PRN Pain Rated 4-6 Oxycodone/Acetaminophen 1 tab 06/08/24 17:08 06/09/24 04:58 Oxycodone/Acetaminophen (*Crx) 10-325 Mg Tablet PO 1 tab Q4H PRN Administration Pain Rated 7-10 Sertraline HCl 50 mg 06/09/24 09:00 Sertraline Hcl 50 Mg Tablet PO DAILY [facility] Radiology Results: ITS Impressions Pelvic/Transvag US 06/08/24 14:59 IMPRESSION: Right adnexal mass. Left adnexal cystic mass patient's. Ascites.
--- NOTE | 2024-06-09 09:09 | P.DS_ITS ---
DS: Admitting Diagnosis Discharge Date 06/09/24 Admitting Diagnosis Right adnexal cystic mass Right adnexal pain DS: Discharge Diagnosis Discharge Diagnosis (1) Adnexal pain: Code(s): R10.2 - Pelvic and perineal pain Status: Acute (2) Adnexal mass: Code(s): N94.89 - Other specified conditions associated with female genital organs and menstrual cycle Status: Acute DS: Summary Hospital Course Hospital Course: Transferred to from [facility] for abdominal pain with a large pelvic cystic mass. Parenteral pain medicine was eventually changed to oral meds, and pain was fa irly well-controlled. She was able to go home on oral Percocet and ibuprofen to f/u in office early next week. Discharge Plan Discharge Attending physician on discharge: Elmer De La Cruz Discharging Clinician: Elmer De La Cruz Patient Disposition: Home, Self-Care Activity: as tolerated Diet: regular Discharge Instructions: Call or return if temperature above 100.4? F, increased abdominal pain, or any new problems. Patient Instructions: Pain Management (DC) Patient Language: Welsh Stand Alone Forms: General Discharge Information Follow-up/Referrals: Elmer De La Cruz MD [Physician] - Call for Appointment Discharge Medications: New ibuprofen 600 mg tablet 600 mg PO Q6H PRN (Reason: cramps) Qty: 30 0RF oxycodone-acetaminophen [Percocet] 5-325 mg tablet 1 - 2 tablet PO Q6H PRN (Reason: pain) Qty: 30 0RF Continued buspirone 5 mg Tablet 5 mg PO BID PRN (Reason: anxiety) sertraline 50 mg tablet 50 mg PO DAILY Date of admission: 06/08/24 00:40 Primary Care Provider: Ibrahima Phipps Admitting Provider: Elmer De La Cruz Attending physician on admission: Elmer De La Cruz Condition: Stable
== END 2024-06-09 11:33 | disposition home or self-care (01) ==
PROVIDERS: Admitting Provider Obstetrics & Gynecology; PCP Internal Medicine; Visit Provider Obstetrics & Gynecology
DX: R10.2 Pelvic and perineal pain (principal); N94.89 Other specified conditions associated with female genital organs and menstrual cycle; F17.290 Nicotine dependence, other tobacco product, uncomplicated
CPT/HCPCS: 76830; 76856; 96374; 96375; 96376; 99285; A9270; G0378; J1885; J2270

== ENCOUNTER 2024-06-10 09:27 | Day surgery (SDC) | payer OTHER, SELFPAY ==
[2024-06-10] VITALS (10 sets, daily range): BP systolic 104–127; BP diastolic 55–77; PULSE 75–109; RESP 14–17; TEMP 36.7–37.3; O2SAT 95–100
--- NOTE | 2024-06-10 11:45 | PC.NURSE ---
Dr. Meera Davise came to ER and would like to take patient to the OR. Pt does not need to be seen by a provider in the emergency room. Dr Fuentes is aware of this conversation. Registration is also aware.
--- NOTE | 2024-06-10 12:00 | P.HPUP_ITS ---
History and Physical Update Update Date/Time: 06/10/24 12:00 History and Physical has been reviewed, including an updated exam of the patient. There are NO changes in the patient's condition. Risks, benefits, and alternatives have been discussed and questions answered. Patient agrees to proceed with procedure. Patient returns through the emergency department severe pelvic she has large cystic mass right some cysts on her pain is 10/10 and she will now undergo laparoscopic right salpingo-oophorectomy and possible bilateral salpingo- oophorectomy risks benefits reviewed great detail
[2024-06-10] MEDS: MORPHINE SULFATE (*CRX) 2 MG/ML INJ IV PUSH (12:55)
--- NOTE | 2024-06-10 13:26 | WPDANESEPPF ---
Anes - Initial Pre Proc Eval Procedure: Operation Date: 06/10/24 15:00 Proposed Procedures p Laparoscopic Right Salpingo Oophorectomy,Possible Left Salpingo Oophorectomy - Javid Davies MD Date/Time: 06/10/24 13:26 Surgeon: Javid Davies MD Pre Op Diagnosis: sent by Meera Davies for RLQ pain Patient Data Age: 43 Gender: F Height: 1.75 m Weight: 90.7 kg Last Vital Signs Temp 37.3 C 06/10/24 12:51 Pulse 75 06/10/24 12:51 Resp 17 06/10/24 09:51 BP 122/62 06/10/24 12:51 Pulse Ox 100 06/10/24 12:51 O2 Del Method Room Air 06/10/24 12:51 Allergies Allergy/AdvReac Type Severity Reaction Status Date / Time No Known Allergies Allergy Verified 06/08/24 01:15 Home Medications ?Medication ?Instructions ?Recorded ?Confirmed ?Type buspirone 5 mg tablet 5 mg PO BID PRN anxiety 04/03/24 06/08/24 History sertraline 50 mg tablet 50 mg PO DAILY 04/03/24 06/08/24 History ibuprofen 600 mg tablet 600 mg PO Q6H PRN cramps #30 tabs 06/09/24 Rx oxycodone-acetaminophen 5 mg-325 1 - 2 tablet PO Q6H PRN pain #30 06/09/24 Rx mg tablet (Percocet) tabs Patient hx anesthesia problems: none Family hx anesthesia problems: none Results Review: All pre-operative results and documents have been reviewed as part of the pre-operative evaluation. [facility] Past Medical History Medical History Diarrhea Irregular heart beat Rectal pain, chronic GERD without esophagitis Overweight (BMI 25.0-29.9) Tobacco dependence Generalized anxiety disorder Surgical History Surgical History History of hysterectomy Family History Family History Grandparent Cancer Father Acute myocardial infarction Mother Acute myocardial infarction Social History Social History Smoking packs per day: 0.5 Smoking cigarettes per day: 10.0 Years smoked: 20 Smoking pack-years: 10.00 Smoking status: Former smoker Tobacco type: cigarettes and e-cigarettes/vaping Additional smoking assessment comments: former use of cigarettes; current use of vape Substance use type: does not use Do You Feel Safe in your Home?: No Lack of Transportation: No Lack of Food: Never True Current Housing: I Do Not Have Housing Concerned About Future Housing: No Difficulty Paying Gas/Electric Bills: No Difficulty Paying for Meds: No Currently Unemployed: No Education: High School Diploma/GED Difficulty w/ Childcare or Family Care: No Living arrangements: with family Gender identity (if verbalized by the patient): Female Spiritual care concerns: No Anes - Eval Final PreProcedure Day of Procedure 06/10/24 13:26 Patient weight: obese Heart: regular rate and rhythm Lungs: clear to auscultation Airway: Mallampati scale class II Neurological: alert and oriented Last oral intake: >/= 8 hours ASA classification: III Emergent: no Anesthetic plan: proceed Anesthesia type and monitoring: general ETT and standard monitoring Results Review: All pre-operative results and documents have been reviewed as part of the pre-operative evaluation. Informed Consent: The patient's anesthetic plan and its attendant risks and benefits were discussed with the patient/family/POA. Questions were solicited and answers provided to the satisfaction of the patient/family/POA.
[2024-06-10] MEDS: LACTATED RINGERS 1,000 ML 30 ML IV CONT ×2 (13:51→16:24)
--- NOTE | 2024-06-10 15:27 | W.PM.PROC2 ---
Procedure Note - Detailed Date of Procedure 06/10/24 Pre-op Diagnosis Bilateral adnexal masses Post-op Diagnosis Same Procedure Performed laparoscopic bilateral salpingo-oophorectomy. Surgeon Javid Davies MD Anesthesia General Indications 43-year-old female with bilateral complex masses who is status post hysterectomy Findings complete torsion x4 of the right adnexa complete torsion of the left adnexa uterus was absent Description of Procedure patient was prepped draped in the normal sterile fashion placed in dorsal lithotomy position. Under excellent general trach anesthesia weighted speculum placed in posterior fornix vagina. Sponge stick placed in the bladder drained of clear urine. The weighted speculum was removed and the gloves were changed. A supraumbilical incision made the Veress needle passed in the abdomen. Abdomen filled with CO2 gas [id number]. The 5mm trocar advanced in the abdomen. Downside visualized no injury seen. Patient placed in Trendelenburg and a suprapubic incision made. The 5mm trocar advanced under direct visualization assuring no injury. A large torsion with a lot of clot and disintegrated adnexa on the right was noted a torsion about the size of a baseball was seen on the left. A right lower quadrant incision made the 10mm trocar advanced multiple clots and broken down debrided tissue were removed with a suction device. The right infundibulopelvic structure was skeletonized clamped burned cut this was placed in an Endo-Catch. In similar fashion on the left a torsion was noted. Photo documentation was undertaken. The infundibulopelvic structure was clamped, burned, cut. This tube was placed in the Endo-Catch. This was then removed piecemeal through the bag through the right lower quadrant incision. Vigorous irrigation was undertaken until clear and both pedicles appeared dry. No other abnormalities were seen. The gas removed from the abdomen and the trocars removed. The incisions were closed with 4-0 Monocryl and glue. The patient was awakened went recovery in satisfactory condition. All sponge, needle, instrument counts were correct. There were no immediate complications Estimated Blood Loss 25 Drains No Packing No Pathology Yes Complications No immediate complications Condition Stable Disposition PACU
[2024-06-10] MEDS: fentaNYL CITRATE INJ (*CRX) 100 MCG/2 ML VIAL 25 MCG IV PUSH ×4 (15:42→15:56)
[2024-06-10] MEDS: oxyCODONE HCL (*CRX) 5 MG TAB IR PO (17:00)
== END 2024-06-10 17:34 | disposition home or self-care (01) ==
LOC: ANHED 11:48 → ANHSURGERY 11:51
PROVIDERS: Emergency Provider Obstetrics & Gynecology; PCP Internal Medicine; Visit Provider Obstetrics & Gynecology
PROC: (CPT 49320; principal; 2024-06-10 15:00)
DX: N83.512 Torsion of left ovary and ovarian pedicle (principal); N83.511 Torsion of right ovary and ovarian pedicle; F17.290 Nicotine dependence, other tobacco product, uncomplicated; F41.1 Generalized anxiety disorder; E66.9 Obesity, unspecified; Z68.29 Body mass index [BMI] 29.0-29.9, adult
CPT/HCPCS: 58661; 88304; A9270; J1100; J2003; J2250; J2270; J2405; J2704; J3010; J7120

== ENCOUNTER 2025-02-04 23:32 | Emergency (ER) | payer BC, SELFPAY ==
--- NOTE | ~2025-02-04 | XR_ITS ---
EXAMINATION: XR chest 2V DATE: 02/05/2025 00:26 INDICATION: Chest discomfort TECHNIQUE: PA and lateral views of the chest were obtained. COMPARISON: Chest radiograph dated 04/03/2024 FINDINGS: The lungs remain clear with no focal airspace opacities, pulmonary edema, pleural effusion or pneumot horax. The cardiomediastinal silhouette is normal. Mild thoracic spondylosis with chronic mild anteri or wedging of a midthoracic vertebral body, likely T7. IMPRESSION: 1. No acute cardiopulmonary disease. Reviewed, dictated and finalized at location A.
--- NOTE | ~2025-02-04 | CT_ITS ---
EXAMINATION: CT brain wo con DATE: 02/05/2025 00:25 INDICATION: Left arm numbness and dizziness TECHNIQUE: Computed tomography (CT) of the head was performed without intravenous contrast. Sagittal and coronal reconstructions were performed. The mA was adjusted according to patient size. Iterative reconstruction technique was employed. The dose-length product was 605.33 mGy-cm. COMPARISON: head CT dated 02/09/2020 FINDINGS: No acute intracranial hemorrhage, acute infarction or abnormal extra axial fluid collection. Ventricl es are normal and symmetric. No mass/mass effect. There is a empty sella with CSF filling the major ity of the sella with the pituitary flattened along the floor of the sella. The orbits, paranasal sin uses and mastoid air cells are normal. IMPRESSION: 1. No acute intracranial process. 2. Empty sella which can be seen with idiopathic intracranial hypertension. Reviewed, dictated and finalized at location A.
--- NOTE | 2025-02-04 23:34 | ED_ITS ---
HPI - Dizziness General Chief Complaint: Dizziness Stated Complaint: chest discomfort Time Seen by Provider: 02/04/25 23:34 Source: patient Mode of arrival: ambulatory Limitations: no limitations History of Present Illness HPI Narrative: Patient is a 44-year-old female with a chest burning sensation and a left arm versus the left hand numbness and associated dizziness this evening. Patient was having a difficult time deciphering between numbness of the left upper extremity versus the left hand. MD elicited complaint: dizziness Pertinent past history: other ( None) Onset (ago): hour(s) ( 2) Timing: sudden onset Severity: mild Description: sense of movement Context: other ( patient has multiple complaints which could be nonspecific and unrelated at this time) History of similar symptoms: No Exacerbating factors: nothing Relieving factors: nothing Associated symptoms: chest pain ( chest burning mid chest which resolved in the emergency room) and other ( left upper extremity numbness that was going on for 2 hours before ER arrival) Associated neuro symptoms: limb numbness ( left upper extremity) and other ( left upper extremity numbness) Related Data Home Medications ?Medication ?Instructions ?Recorded ?Confirmed ?Last Taken ?Type buspirone 5 mg tablet 5 mg PO BID PRN anxiety 04/03/24 06/08/24 Unknown History sertraline 50 mg tablet 50 mg PO DAILY 04/03/24 06/08/24 Unknown History Allergies Allergy/AdvReac Type Severity Reaction Status Date / Time No Known Allergies Allergy Verified 06/08/24 01:15 Review of Systems 2 Review of Systems: All systems reviewed & are unremarkable except as noted in HPI and below Constitutional: Constitutional: Reports no additional constitutional complaints Eyes: Eyes: Reports no additional eye complaints ENT: Reports system reviewed and no additional complaints, except as documented Cardiovascular: Cardiovascular: Reports no additional cardiovascular complaints Respiratory: Respiratory: Reports no additional respiratory complaints Gastrointestinal: Gastrointestinal: Reports no additional gastrointestinal complaints Genitourinary: Genitourinary: Reports no additional female genitourinary complaints Musculoskeletal: Musculoskeletal: Reports no additional musculoskeletal complaints Integumentary/Breasts: Skin/Breast: Reports system reviewed and no additional complaints, except as docu Neurologic: Reports system reviewed and no additional complaints, except as documented Psychiatric: Psychiatric: Reports no additional psychiatric complaints Endocrine: Endocrine: Reports no additional endocrine complaints Hematologic/Lymphatic: Hematologic/Lymphatic: Reports no additional hematologic/lymphatic complaints Allergic/Immunologic: Allergic/Immunologic: Reports no additional allergic/immunologic complaints [facility] Past Medical History Medical History Diarrhea Irregular heart beat Rectal pain, chronic GERD without esophagitis Overweight (BMI 25.0-29.9) Tobacco dependence Generalized anxiety disorder Surgical History Surgical History History of hysterectomy Family History Family History (Reviewed 02/05/25 @ 02: by Tomy Singleton MD) Grandparent Cancer Father Acute myocardial infarction Mother Acute myocardial infarction Social History Social History Smoking packs per day: 0.5 Smoking cigarettes per day: 10.0 Years smoked: 20 Smoking pack-years: 10.00 Smoking status: Former smoker Tobacco type: cigarettes and e-cigarettes/vaping Additional smoking assessment comments: former use of cigarettes; current use of vape Substance use type: does not use Do You Feel Safe in your Home?: No Lack of Transportation: No Lack of Food: Never True Current Housing: I Do Not Have Housing Concerned About Future Housing: No Difficulty Paying Gas/Electric Bills: No Difficulty Paying for Meds: No Currently Unemployed: No Education: High School Diploma/GED Difficulty w/ Childcare or Family Care: No Living arrangements: with family Gender identity (if verbalized by the patient): Female Spiritual care concerns: No Exam 2 Const: General: healthy appearing Nutritional Appearance: well nourished Orientation/consciousness: patient oriented x3 HENMT: Head: normal to inspection Ears: TM's normal bilaterally F katrin/Nose/Sinus: Normal external nose present Eyes: Conjunctivae: conjunctivae normal Pupils: Equal, round and reactive pupils present EOM: EOMs intact bilaterally Neck: Neck: normal visual inspection Chest: Chest palpation & inspection: normal inspection of the chest Resp: Effort & Inspection: normal respiratory effort and not labored A uscultation: clear to auscultation bilaterally and no crackles Cardio: Rate: regular rate Rhythm: regular rhythm Heart sounds: no murmurs GI: Inspection: non-distended Auscultation: normal bowel sounds : General: Yes bladder normal to palpation Back/Spine/Pelvis: Back: no CVA tenderness Skin: General skin exam: normal color Rashes: no rashes Wounds: no wounds Neuro: General: patient oriented x3, moves all extremities, no meningeal signs, no focal motor deficits and CN's II-XI intact bilaterally Cranial nerves: Yes Nystagmus not present Speech: normal speech Gait exam (Neuro): Normal gait present Other: patient has some numbness of the left upper extremity; fast exam is negative, NIH score is 1 for upper extremity numbness unilateral, GCS is 15 Extrem: General: normal to inspection Psych: Mental Status: mental status grossly normal Affect: normal affect Attitude: cooperative Course Vital Signs Vital signs: Vital Signs Temperature 36.6 C 02/04/25 23:35 Pulse Rate 60 02/04/25 23:35 Respiratory Rate 18 02/04/25 23:35 Blood Pressure 145/86 H 02/04/25 23:35 Pulse Oximetry 97 02/04/25 23:35 Oxygen Delivery Room Air 02/04/25 23:35 Temperature 36.6 C 02/04/25 23:35 Pulse Rate 53 L 02/05/25 01:45 Respiratory Rate 15 02/05/25 01:45 Blood Pressure 124/85 02/05/25 01:31 Pulse Oximetry 97 02/05/25 01:45 Oxygen Delivery Room Air 02/05/25 00:31 MDM - Dizziness MDM Narrative Medical decision making narrative: patient is a 44-year-old female with dizziness, left upper extremity numbness and chest discomfort/ burning this afternoon. We will do a general workup at this time to include cardiovascular and neurological. At the end, patient decided that she did not want any further workup at this time to include CTA or MRI of the brain and/or transfer to a bigger facility to get MRI and Neurology consultation. Patient has the ability to make her own decision with decision- making capacity being good. She has no psychological active problems except anxiety. Risks and benefits discussed about leaving AMA. She signed the form. She will follow up with primary doctor on Thursday. Lab Data Attestation: I reviewed the patient's lab results. 02/04/25 23:59 02/04/25 23:59 Labs: Lab Results 02/04/25 02/05/25 02/05/25 Range/Units 23:59 00:00 01:01 WBC 6.9 (4.8-10.8) K/mm3 RBC 4.23 (4.20-5.40) M/mm3 Hgb 12.6 (12.0-15.0) g/dL Hct 38.2 (35.0-49.0) % MCV 90.3 (78.0-102.0) fL MCH 29.8 (27.0-31.0) pg MCHC 33.0 (32-36) g/dL RDW 12.9 (11.6-14.4) % Plt Count 238 (150-420) K/mm3 MPV 11.5 (9.2-11.8) fl Immature Gran % (Auto) 0.1 H (0.0-0.0) % Neut % (Auto) 44.4 L (50.0-70.0) % Lymph % (Auto) 42.5 H (18.0-42.0) % Forest % (Auto) 8.9 (2.0-11.0) % Eos % (Auto) 3.2 (1.0-6.0) % Baso % (Auto) 0.9 (0.0-1.0) % Lymph # (Auto) 2.95 (1.10-4.50) K/mm3 Forest # (Auto) 0.62 (0.10-0.90) K/mm3 Eos # (Auto) 0.22 (0.02-0.50) K/mm3 Baso # (Auto) 0.06 (0.00-0.10) K/mm3 Abs Immat Gran (auto) 0.01 H (0.00-0.00) K/mm3 Absolute Neuts (auto) 3.08 (1.70-7.20) K/mm3 Absolute Nucleated RBC 0.00 (0.00-0.00) K/mm3 Nucleated RBC % 0.0 (0-0.0) % PT 11.2 (9.50-12.1) Seconds INR 1.0 APTT 29.4 (23.9-30.70) Sec D-Dimer 0.38 (0.19-0.50) mg/L Sodium 139 (137-145) mmol/L Potassium 3.4 (3.4-5.0) mmol/L Chloride 106 (98-107) mmol/L Carbon Dioxide 27 (22-30) mmol/L Anion Gap 6 (4-12) mmol/L BUN 14 (7-17) mg/dL Creatinine 0.84 (0.7-1.0) mg/dL Estim Creat Clear Calc 90 ml/min Estimated GFR > 60 (59 - ) Glucose 96 (65-110) mg/dL Calculated Osmolality 288 (285-295) mOsm/kg Lactic Acid 1.0 (0.4-2.0) mmol/L Calcium 9.8 (8.4-10.2) mg/dL Total Bilirubin 0.4 (0.2-1.3) mg/dL AST 33 (14-36) U/L ALT 29 (6-35) U/L Alkaline Phosphatase 79 (38-126) U/L Troponin I < 0.012 (0.000-0.034) ng/mL NT-Pro-B Natriuret Pep 99 (19.9-100) pg/mL Total Protein 7.1 (6.3-8.2) g/dL Albumin 4.3 (3.5-5.1) g/dL Urine Color Light yellow (Yellow) Urine Appearance Clear (Clear) Urine pH 6.5 (5.0-8.0) Ur Specific Folcroft <= 1.005 L (1.010-1.020) Urine Protein Negative (Negative) Urine Glucose (UA) Negative (Negative) Urine Ketones Negative (Negative) Ur Blood (Man) Negative (Negative) Urine Nitrate Negative (Negative) Urine Bilirubin Negative (Negative) Urine Urobilinogen 0.2 (0.2-1.0) mg/dL Leukocyte Esterase Rfl Negative (Negative) FATMATA/UL Imaging Data Attestation: I personally reviewed and interpreted this imaging study as follows: Radiologist's impression: CT scan of the head was negative for acute process chest x-ray was negative for acute process ( pending final reading) ECG Data EKG #1: Attestation: I personally reviewed and interpreted this ECG as follows: ECG completion date: 02/05/25 ECG completion time: 02:33 EKG Interpretation: sinus rhythm, no ectopy, no ST changes, normal QRS, normal QT, NL axis and no acute changes Discharge Plan Discharge Clinical Impression: Dizziness, Numbness and tingling in left arm Patient Disposition: Left Against Medical Advice Condition: Stable Instructions: Dizziness (ED) Additional Instructions: please follow-up with the primary doctor in the next week. I suggest Neurology evaluation for continued left upper extremity numbness. Come back to the emergency room with any concerns. Patient Language: Swazi Prescriptions: No Action buspirone 5 mg Tablet 5 mg PO BID PRN (Reason: anxiety) sertraline 50 mg tablet 50 mg PO DAILY ibuprofen 600 mg tablet 600 mg PO Q6H PRN (Reason: cramps) Qty: 30 0RF oxycodone-acetaminophen [Percocet] 5-325 mg tablet 1 - 2 tablet PO Q6H PRN (Reason: pain) Qty: 30 0RF estradiol 1 mg tablet 1 mg PO DAILY Qty: 30 0RF Follow-up/Referrals: Ibrahima Phipps MD [Primary Care Provider] - Time of Disposition: 02:12
[2025-02-04 23:35] VITALS: BP 145/86; PULSE 60; RESP 18; TEMP 36.6; O2SAT 97
--- NOTE | 2025-02-04 23:38 | ECG_ITS ---
Test Date: 2025-02-04 23:42:04 Measurements Intervals [place] Rate: 51 P: 58 WV: 169 QRS: 9 QRSD: 92 T: 28 QT: 433 QTc: 400 Interpretive Statements SINUS BRADYCARDIA BORDERLINE ECG Compared to ECG 04/03/2024 22:49:37 HEART RATE HAS DECREASED Electronically Signed On 02-05-2025 08:03:37 CDT by Santi Silva D.O.
[2025-02-05] VITALS (7 sets, daily range): BP systolic 97–128; BP diastolic 60–85; PULSE 47–57; RESP 14–18; TEMP 36.6; O2SAT 95–99
[2025-02-05 00:46] LABS: Alanine Aminotransferase 29 U/L (6-35); Albumin Level 4.3 g/dL (3.5-5.1); Alkaline Phosphatase 79 U/L (38-126); Anion Gap 6 mmol/L (4-12); Aspartate Amino Transferase 33 U/L (14-36); Bilirubin,Total 0.4 mg/dL (0.2-1.3); Blood Urea Nitrogen 14 mg/dL (7-17); Calcium 9.8 mg/dL (8.4-10.2); Carbon Dioxide 27 mmol/L (22-30); Chloride 106 mmol/L (98-107); Estimated CRCL calculation 90 ml/min; Estimated Glomerular Filt Rate > 60; Glucose 96 mg/dL (65-110); Osmolality Calculated 288 mOsm/kg (285-295); Potassium 3.4 mmol/L (3.4-5.0); Sodium 139 mmol/L (137-145); Total Protein 7.1 g/dL (6.3-8.2)
[2025-02-05 00:50] LABS: INR 1.0; Partial Thromboplastin Time 29.4 Sec (23.9-30.70); Prothrombin Time 11.2 Seconds (9.50-12.1)
[2025-02-05 00:51] LABS: Hematocrit 38.2 % (35.0-49.0); Hemoglobin 12.6 g/dL (12.0-15.0); Immature Granulocyte Percent A 0.1 % (0.0-0.0); Lymphocytes Absolute Auto 2.95 K/mm3 (1.10-4.50); Mean Corpuscular HGB Conc 33.0 g/dL (32-36); Mean Corpuscular Hemoglobin 29.8 pg (27.0-31.0); Mean Corpuscular Volume 90.3 fL (78.0-102.0); Nucleated Red Blood Cells Absolute Auto 0.00 K/mm3 (0.00-0.00); Nucleated Red Blood Cells Perc 0.0 % (0-0.0); Platelet Count Result 238 K/mm3 (150-420); Red Blood Count 4.23 M/mm3 (4.20-5.40); White Blood Count 6.9 K/mm3 (4.8-10.8)
[2025-02-05 00:55] LABS: NT Pro B Type Natriuretic Pept 99 pg/mL (19.9-100)
[2025-02-05 01:37] LABS: Troponin I < 0.012 ng/mL (0.000-0.034)
[2025-02-05 01:55] LABS: Add Urine Microscopic? NO; Appearance Urine Clear (Clear); Glucose Urine UA Negative (Negative); Leukocyte Esterase Ur Negative LEU/UL (Negative); Nitrate Urine Negative (Negative); Specific Grav Ur <= 1.005 (1.010-1.020)
--- NOTE | 2025-02-05 02:01 | PC.NURSE ---
Pt resting and ambulated steadily to BR, she still c/o numbness in her Lt arm and hand. ERP Dr Singleton speaking w/ pt about test results and possible need for transfer to neuro if sxs not resolved. Pt not wanting transfer for this since all other tests are negative and wants to go home and just see her FMD on Thursday.
--- NOTE | 2025-02-05 02:10 | PC.NURSE ---
Pt reports feeling some better and wants to f/u w/ her FMD on Thursday for any other tests that need to be done, she doesn't want transfer anyplace tonight and wants to sign AMA and go home. Risks/benefits explained in full to pt by this RN and Dr Singleton.
== END 2025-02-05 02:24 | disposition left against medical advice (07) ==
PROVIDERS: Emergency Provider Emergency Medicine; PCP Internal Medicine
DX: R42 Dizziness and giddiness (principal); R20.0 Anesthesia of skin; R20.2 Paresthesia of skin; R07.9 Chest pain, unspecified; Z87.891 Personal history of nicotine dependence
CPT/HCPCS: 36415; 70450; 71046; 80053; 81003; 83605; 83880; 84484; 85025; 85380; 85610; 85730; 93005; 99284

== ENCOUNTER 2025-03-31 11:41 | Outpatient (CLI) | payer BC, SELFPAY ==
--- NOTE | ~2025-03-31 | CT_ITS ---
EXAMINATION: CT abdomen pelvis w con DATE: 03/31/2025 12:29 INDICATION: Right lower quadrant abdominal pain, fever and nausea TECHNIQUE: Computed tomography (CT) of the abdomen and pelvis was performed with 100 mL Omnipaque-350 intravenous contrast. Automated exposure control and iterative reconstruction technique were employed. The dose-length product was 552.57 mGy-cm. COMPARISON: None FINDINGS: Lung bases are clear. Heart size is normal. No pericardial or pleural effusion. Focal hepatic steatosis at the ligamentum teres. Gallbladder, spleen, pancreas and left adrenal gland are normal. Unchanged 1 cm low-attenuation right adrenal adenoma. 1.4 cm right renal cyst. 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 Dilation of the fluid-filled appendix which measures up to 1.1 cm with surrounding inflammatory stranding consistent with acute appendicitis. There is mild likely reactive lymphadenopathy along the ileocolic chain with largest lymph node measuring 1.2 cm in maximal short axis diameter. Recommend of the bowels are unremarkable with no obstruction. Bladder is normal. The uterus is not identified and has likely been surgically resected. No abscess or free intraperitoneal gas or fluid. No pathologically enlarged abdominal or pelvic lymphadenopathy. Mild lower thoracic spondylosis. IMPRESSION: 1. Acute appendicitis. Reviewed, dictated and finalized at location A. IMPRESSION: 1. Acute appendicitis.
[2025-03-31 12:01] LABS: Hematocrit 40.5 % (35.0-49.0); Hemoglobin 12.9 g/dL (12.0-15.0); Mean Corpuscular HGB Conc 31.9 g/dL (32-36); Mean Corpuscular Hemoglobin 29.3 pg (27.0-31.0); Mean Corpuscular Volume 91.8 fL (78.0-102.0); Platelet Count Result 219 K/mm3 (150-420); Red Blood Count 4.41 M/mm3 (4.20-5.40); White Blood Count 9.8 K/mm3 (4.8-10.8)
[2025-03-31 12:12] LABS: Albumin Level 4.5 g/dL (3.5-5.1); Alkaline Phosphatase 71 U/L (38-126); Amylase 66 U/L (30-110); Anion Gap 8 mmol/L (4-12); Bilirubin,Total 0.6 mg/dL (0.2-1.3); Blood Urea Nitrogen 9 mg/dL (7-17); Calcium 10.7 mg/dL (8.4-10.2); Carbon Dioxide 30 mmol/L (22-30); Chloride 101 mmol/L (98-107); Estimated Glomerular Filt Rate > 60; Glucose 99 mg/dL (65-110); Lipase 60 U/L (23-300); Osmolality Calculated 286 mOsm/kg (285-295); Potassium 4.2 mmol/L (3.4-5.0); Sodium 139 mmol/L (137-145); Total Protein 8.5 g/dL (6.3-8.2)
[2025-03-31 12:13] LABS: Aspartate Amino Transferase 26 U/L (14-36)
[2025-03-31 12:14] LABS: Alanine Aminotransferase 21 U/L (6-35)
== END 2025-03-31 11:42 | disposition home or self-care (01) ==
LOC: CHSLAB 11:43
PROVIDERS: PCP Internal Medicine; Visit Provider Nurse Practitioner Family
DX: K35.80 Unspecified acute appendicitis (principal); R10.31 Right lower quadrant pain; R50.9 Fever, unspecified; R11.0 Nausea
CPT/HCPCS: 36415; 74177; 80053; 82150; 83690; 85027; Q9967

== ENCOUNTER 2025-03-31 13:36 | Day surgery (SDC) | payer BC, SELFPAY ==
[2025-03-31] VITALS (9 sets, daily range): BP systolic 110–138; BP diastolic 65–78; PULSE 64–92; RESP 14–20; TEMP 36.4–36.7; O2SAT 95–100
--- NOTE | 2025-03-31 14:08 | ED.ABDPAIN ---
HPI - Abdominal Pain General Chief Complaint: Abdominal Pain <SANDRITA Jackson Last Filed: 03/31/25 14:57> Stated Complaint: appendicitis <SANDRITA Jackson Last Filed: 03/31/25 14:57> Time Seen by Provider: 03/31/25 13:44 <Chrissy Drummond PA-C - Last Filed: 03/31/25 14:57> Source: patient <Chrissy SANDRITA Tenorio Last Filed: 03/31/25 14:57> Mode of arrival: ambulatory <SANDRITA Jackson Last Filed: 03/31/25 14:57> Limitations: no limitations <SANDRITA Jackson Last Filed: 03/31/25 14:57> History of Present Illness HPI narrative: This is a 44-year-old female that presents to the emergency department for right lower quadrant abdominal pain. Ongoing since yesterday. Reports fevers, nausea. She had an outpatient CT scan today which showed acute appendicitis. <SANDRITA Jackson Last Filed: 03/31/25 14:57> Related Data Home Medications: Home Medications ?Medication ?Instructions ?Recorded ?Confirmed ?Last Taken ?Type buspirone 5 mg tablet 5 mg PO BID PRN anxiety 04/03/24 06/08/24 Unknown History sertraline 50 mg tablet 50 mg PO DAILY 04/03/24 06/08/24 Unknown History <SANDRITA Jackson Last Filed: 03/31/25 14:57> Allergies/Adverse Reactions: Allergies Allergy/AdvReac Type Severity Reaction Status Date / Time No Known Allergies Allergy Verified 03/31/25 14:14 <SANDRITA Jackson Last Filed: 03/31/25 14:57> Review of Systems Review of Systems: All systems reviewed & are unremarkable except as noted in HPI and below <Chrissy Drummond PA-C - Last Filed: 03/31/25 14:57> PMFSH Past Medical History Medical History: Medical History Diarrhea Irregular heart beat Rectal pain, chronic GERD without esophagitis Overweight (BMI 25.0-29.9) Tobacco dependence Generalized anxiety disorder <Chrissy Drummond PA-C - Last Filed: 03/31/25 14:57> Surgical History Surgical History: Surgical History History of hysterectomy <Chrissy Drummond PA-C - Last Filed: 03/31/25 14:57> Family History Family History: Family History Grandparent Cancer Father Acute myocardial infarction Mother Acute myocardial infarction <Chrissy Drummond PA-C - Last Filed: 03/31/25 14:57> Social History Social History: Social History Smoking packs per day: 0.5 Smoking cigarettes per day: 10.0 Years smoked: 20 Smoking pack-years: 10.00 Smoking status: Former smoker Tobacco type: cigarettes and e-cigarettes/vaping Additional smoking assessment comments: former use of cigarettes; current use of vape Substance use type: does not use Do You Feel Safe in your Home?: No Lack of Transportation: No Lack of Food: Never True Current Housing: I Do Not Have Housing Concerned About Future Housing: No Difficulty Paying Gas/Electric Bills: No Difficulty Paying for Meds: No Currently Unemployed: No Education: High School Diploma/GED Difficulty w/ Childcare or Family Care: No Living arrangements: with family Gender identity (if verbalized by the patient): Female Spiritual care concerns: No <Chrissy Drummond PA-C - Last Filed: 03/31/25 14:57> Exam Narrative: GENERAL: Well-appearing, well-nourished, and in no acute distress. HEAD: Normocephalic, atraumatic. EYES: EOMI. CHEST: Clear to auscultation. No respiratory distress. No wheezes rales or rhonchi HEART: Regular rate and rhythm. No murmur heard. Normal peripheral pulses. ABDOMEN: Soft, nondistended, normal active bowel sounds. Tender to palpation in the right lower quadrant, without guarding EXTREMITIES: Normal range of motion. No edema. SKIN: Warm, dry, no rash. NEURO: No focal deficits. Alert and oriented x3. PSYCH: Normal mood and affect <Chrissy Drummond PA-C - Last Filed: 03/31/25 14:57> Course [employer]/PA Physician Supervision This visit was performed by both a physician and an APC. I performed all aspects of the MDM as documented. <Yogi Alejandra MD - Last Filed: 03/31/25 21:39> Consultations Consultation #1: General surgery consulted and came to the ER to evaluate patient. She will go to the OR <Chrissy Drummond PA-C - Last Filed: 03/31/25 14:57> Date: 03/31/25 <Chrissy Drummond PA-C - Last Filed: 03/31/25 14:57> Vital Signs Vital signs: Vital Signs Temperature 98.1 F 03/31/25 13:41 Pulse Rate 78 03/31/25 13:41 Respiratory Rate 20 03/31/25 13:41 Blood Pressure 133/77 03/31/25 13:41 Pulse Oximetry 99 03/31/25 13:41 Oxygen Delivery Room Air 03/31/25 13:41 Temperature 97.6 F 03/31/25 17:23 Pulse Rate 75 03/31/25 18:35 Respiratory Rate 16 03/31/25 18:35 Blood Pressure 134/74 03/31/25 18:35 Pulse Oximetry 98 03/31/25 18:00 Oxygen Delivery Room Air 03/31/25 18:00 Oxygen Flow Rate 6 03/31/25 17:35 <Chrissy Drummond PA-C - Last Filed: 03/31/25 14:57> Vital Signs Temperature 98.1 F 03/31/25 13:41 Pulse Rate 78 03/31/25 13:41 Respiratory Rate 20 03/31/25 13:41 Blood Pressure 133/77 03/31/25 13:41 Pulse Oximetry 99 03/31/25 13:41 Oxygen Delivery Room Air 03/31/25 13:41 Temperature 97.6 F 03/31/25 17:23 Pulse Rate 75 03/31/25 18:35 Respiratory Rate 16 03/31/25 18:35 Blood Pressure 134/74 03/31/25 18:35 Pulse Oximetry 98 03/31/25 18:00 Oxygen Delivery Room Air 03/31/25 18:00 Oxygen Flow Rate 6 03/31/25 17:35 <Yogi Alejandra MD - Last Filed: 03/31/25 21:39> MDM - Abdominal Pain MDM Narrative Medical decision making narrative: Patient presents the emergency department for right lower quadrant abdominal pain. Found to have acute appendicitis on outside imaging. General surgery consulted, patient will be taken to the OR <Chrissy Drummond PA-C - Last Filed: 03/31/25 14:57> Differential Diagnosis Differential diagnosis: Likely acute appendicitis <Chrissy Drummond PA-C - Last Filed: 03/31/25 14:57> Medical Records Attestation: I reviewed the patient's medical records. <Chrissy Drummond PA-C - Last Filed: 03/31/25 14:57> Lab Data Attestation: I reviewed the patient's lab results. <Chrissy Drummond PA-C - Last Filed: 03/31/25 14:57> Imaging Data Radiologist's impression: DATE: 03/31/2025 12:29 INDICATION: Right lower quadrant abdominal pain, fever and nausea TECHNIQUE: Computed tomography (CT) of the abdomen and pelvis was performed with 100 mL Omnipaque-350 intravenous contrast. Automated exposure control and iterative reconstruction technique were employed. The dose-length product was 552.57 mGy-cm. COMPARISON: None FINDINGS: Lung bases are clear. Heart size is normal. No pericardial or pleural effusion. Focal hepatic steatosis at the ligamentum teres. Gallbladder, spleen, pancreas and left adrenal gland are normal. Unchanged 1 cm low-attenuation right adrenal adenoma. 1.4 cm right renal cyst. 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 Dilation of the fluid-filled appendix which measures up to 1.1 cm with surrounding inflammatory stranding consistent with acute appendicitis. There is mild likely reactive lymphadenopathy along the ileocolic chain with largest lymph node measuring 1.2 cm in maximal short axis diameter. Recommend of the bowels are unremarkable with no obstruction. Bladder is normal. The uterus is not identified and has likely been surgically resected. No abscess or free intraperitoneal gas or fluid. No pathologically enlarged abdominal or pelvic lymphadenopathy. Mild lower thoracic spondylosis. IMPRESSION: 1. Acute appendicitis. <Chrissy Drummond PA-C - Last Filed: 03/31/25 14:57> Critical Care Time Critical Care Time Critical Care Time: No <Chrissy Drummond PA-C - Last Filed: 03/31/25 14:57> Discharge Plan Discharge Clinical Impression: Acute appendicitis Qualifiers: Acute appendicitis type: with localized peritonitis Appendicitis gangrene presence: without gangrene Appendicitis perforation presence: without perforation Appendicitis abscess presence: without abscess Qualified Code(s): K35.30 - Acute appendicitis with localized peritonitis, without perforation or gangrene <Chrissy Drummond PA-C - Last Filed: 03/31/25 14:57> Patient Disposition: Still a Patient <SANDRITA Jackson Last Filed: 03/31/25 14:57> Condition: Stable <SANDRITA Jackson Last Filed: 03/31/25 14:57>
[2025-03-31] MEDS: PIPERACILLIN/TAZOBACTAM SOD 3.375 GM in SODIUM CHLORIDE 0.9% IV 50 ML 100 ML IVPB (14:17)
--- NOTE | 2025-03-31 14:41 | P.HP_ITS ---
H&P: HPI History of Present Illness Date/Time: 03/31/25 14:41 Chief Complaint: abdominal pain Narrative: Patient is a 44-year-old otherwise fairly healthy female who presents to the ED today from [facility] with lower abdominal pain localized to right lower quadrant. Patient states that pain started last night. She was able to fall asleep but awoke this morning with pain. She ate some eggs for breakfast around 8:00 a.m. Patient also endorses associated nausea and vomiting. She does admit to having a few sips of water around noon today while at [facility]. She states that roughly 2 weeks ago she had what she thought was flu as she was having symptoms including nausea and vomiting and diarrhea at this time. She does state that she has chronic diarrhea and GI issues. Abdominal surgical history includes hysterectomy. States that she woke up a few days ago and had an episode of dizziness, but has not had 1 since. No other symptoms at this time. Patient's vital signs have been stable. Lab work reveals a normal white blood cell count of 9.8. CT demonstrated dilation of the fluid-filled appendix which measures up to 1.1 cm with surrounding inflammatory stranding consistent with acute appendicitis. PMFSH Past Medical History Medical History Diarrhea Irregular heart beat Rectal pain, chronic GERD without esophagitis Overweight (BMI 25.0-29.9) Tobacco dependence Generalized anxiety disorder Surgical History Surgical History History of hysterectomy Family History Family History Grandparent Cancer Father Acute myocardial infarction Mother Acute myocardial infarction Social History Social History Smoking packs per day: 0.5 Smoking cigarettes per day: 10.0 Years smoked: 20 Smoking pack-years: 10.00 Smoking status: Former smoker Tobacco type: cigarettes and e-cigarettes/vaping Additional smoking assessment comments: former use of cigarettes; current use of vape Substance use type: does not use Do You Feel Safe in your Home?: No Lack of Transportation: No Lack of Food: Never True Current Housing: I Do Not Have Housing Concerned About Future Housing: No Difficulty Paying Gas/Electric Bills: No Difficulty Paying for Meds: No Currently Unemployed: No Education: High School Diploma/GED Difficulty w/ Childcare or Family Care: No Living arrangements: with family Gender identity (if verbalized by the patient): Female Spiritual care concerns: No Meds Home Medications and Allergies Home Medications ?Medication ?Instructions ?Recorded ?Confirmed ?Type buspirone 5 mg tablet 5 mg PO BID PRN anxiety 12/2006/08/24 History sertraline 50 mg tablet 50 mg PO DAILY 04/03/2405/29 History ibuprofen 600 mg tablet 600 mg PO Q6H PRN cramps #30 tabs 06/09/24 Rx oxycodone-acetaminophen 5 mg-325 1 - 2 tablet PO Q6H P RN pain #30 06/09/24 Rx mg tablet (Percocet) tabs estradiol 1 mg tablet 1 mg PO DAILY #30 tabs 06/10 Rx Allergies Allergy/AdvReac Type Severity Reaction Status Date / Time No Known Allergies Allergy Verified 03/31/25 14:14 Vital Signs Vital Signs - 24 hr 03/31/25 13:41 Temperature 98.1 F Pulse Rate 78 Respiratory Rate 20 Blood Pressure 133/77 Pulse Oximetry 99 Oxygen Delivery Room Air Exam Const: General: comfortable and no acute distress Eyes: General: appearance normal, both eyes and all related structures Cardio: Rate: regular rate GI: Inspection: non-distended GI Palp: Yes Soft to palpation, Yes Tender ness to palpation present (GI) (Right lower quadrant) and No Guarding due to palpation present (GI) Auscultation: normal bowel sounds Extrem: General: normal to inspection Psych: Mental Status: mental status grossly normal Assessment and Plan Assessment and plan (1) Acute appendicitis: Qualifiers: Acute appendicitis type: with localized peritonitis Appendicitis abscess presence: without abscess Appendicitis gangrene presence: without gangrene Appendicitis perforation presence: without perforation Qualified Code(s): K35.30 - Acute appendicitis with localized peritonitis, without perforation or gangrene Code(s): K35.80 - Unspecified acute appendicitis Status: Acute Assessment and Plan: Patient presented to the ED today from [facility] with lower abdominal pain that started last night. She awoke this morning and was able to eat some eggs for breakfast around 8 am. She then developed nausea and vomiting. Patient does state that she had what she thinks was a flu roughly 2 weeks ago where she experienced vomiting and diarrhea. Patient also states that she does have c hronic diarrhea and bowel issues. Patient is afebrile and labs revealed a normal white blood cell count. CT of the abdomen and pelvis was obtained and demonstrated acute appendicitis. Patient will be taken back to the OR later this afternoon for a laparoscopic appendectomy with Dr. Ryan. Risks, benefits, and alternatives to the surgery were discussed with the patient. All questions were answered. She is agreeable to proceeding with surgery. Plan Discussed patient's case and plan of care with Dr. Ryan.
--- NOTE | 2025-03-31 15:36 | P.PNAN_ITS ---
Anes - Initial Pre Proc Eval Procedure: Operation Date: 03/31/25 15:30 Proposed Procedures p Laparoscopic Appendectomy - Isaac Ryan MD Date/Time: 03/31/25 15:36 Surgeon: Isaac Ryan MD Pre Op Diagnosis: appendicitis Patient Data Age: 44 Gender: F Height: 1.75 m Weight: 90.2 kg Last Vital Signs Temp 97.5 F L 03/31/25 15:28 Pulse 64 03/31/25 15:28 Resp 16 03/31/25 15:28 BP 122/70 03/31/25 15:28 Pulse Ox 98 03/31/25 15:28 O2 Del Method Room Air 03/31/25 15:28 Allergies Allergy/AdvReac Type Severity Reaction Status Date / Time No Known Allergies Allergy Verified 03/31/25 14:14 Home Medications ?Medication ?Instructions ?Recorded ?Confirmed ?Type buspirone 5 mg tablet 5 mg PO BID PRN anxiety 12/2006/08/24 History sertraline 50 mg tablet 50 mg PO DAILY 04/03/2405/29 History ibuprofen 600 mg tablet 600 mg PO Q6H PRN cramps #30 tabs 06/09/24 Rx oxycodone-acetaminophen 5 mg-325 1 - 2 tablet PO Q6H P RN pain #30 06/09/24 Rx mg tablet (Percocet) tabs estradiol 1 mg tablet 1 mg PO DAILY #30 tabs 06/10 Rx Patient hx anesthesia problems: none Family hx anesthesia problems: none Results Review: All pre-operative results and documents have been reviewed as part of the pre- operative evaluation. [facility] Past Medical History Medical History Diarrhea Irregular heart beat Rectal pain, chronic GERD without esophagitis Overweight (BMI 25.0-29.9) Tobacco dependence Generalized anxiety disorder Surgical History Surgical History History of hysterectomy Family History Family History Grandparent Cancer Father Acute myocardial infarction Mother Acute myocardial infarction Social History Social History Smoking packs per day: 0.5 Smoking cigarettes per day: 10.0 Years smoked: 20 Smoking pack-years: 10.00 Smoking status: Former smoker Tobacco type: cigarettes and e-cigarettes/vaping Additional smoking assessment comments: former use of cigarettes; current use of vape Substance use type: does not use Do You Feel Safe in your Home?: No Lack of Transportation: No Lack of Food: Never True Current Housing: I Do Not Have Housing Concerned About Future Housing: No Difficulty Paying Gas/Electric Bills: No Difficulty Paying for Meds: No Currently Unemployed: No Education: High School Diploma/GED Difficulty w/ Childcare or Family Care: No Living arrangements: with family Gender identity (if verbalized by the patient): Female Spiritual care concerns: No Anes - Eval Final PreProcedure Day of Procedure 03/31/25 15:36 Patient weight: overweight Lungs: normal air movement Airway: Mallampati scale class II Neurological: alert and oriented Last oral intake: 6 hours ASA classification: II Emergent: yes Anesthetic plan: proceed Anesthesia type and monitoring: general ETT and standard monitoring Results Review: All pre-operative results and documents have been reviewed as part of the pre- operative evaluation. Active w vaping, and did so today. Ex smoker quit . Active golfer, walks 1-2 fos, no cp or sob. Informed Consent: The patient's anesthetic plan and its attendant risks and benefits were discussed with the patient/family/POA. Questions were solicited and answers provided to the satisfaction of the patient/family/POA.
[2025-03-31] MEDS: LACTATED RINGERS 1,000 ML 30 ML IV CONT ×2 (15:39→17:37)
--- NOTE | 2025-03-31 15:39 | WPDHPUPDATE1 ---
History and Physical Update Update Date/Time: 03/31/25 15:39 History and Physical has been reviewed, including an updated exam of the patient. There are NO changes in the patient's condition. Risks, benefits, and alternatives have been discussed and questions answered. Patient agrees to proceed with procedure.
[2025-03-31] MEDS: LIDO 1%/EPINEPHRINE 1:100,000 20 ML VIAL 30 ML INFILTRATE (16:19)
--- NOTE | 2025-03-31 16:23 | S_PTH ---
PATIENT: Vilma Mariee LOC: [facility] U#:[id number] AGE/SX: 44/F ROOM: RE03/31/[address]: Isaac Ryan MD : 1980 BED: DIS: 03/31/2025 SPEC #: [id number] RECD: 04/03/25 08:54 STATUS: SAL REQ #: [id number] REBECCA: 03/31/25 16:[address]: Isaac Ryan DEPT: [facility] Surgical RECD BY: Melida Gallegos ENTERED: 04/03/25 08:55 SP TYPE: Surgical OTHR DR: Ibrahima Phipps MD Tissues: A - Appendix Procedures: Hematoxylin and Eosin Stain Gross and Microscopic Level 3
--- NOTE | 2025-03-31 23:17 | P.OP_ITS ---
Procedure Note - Detailed Date of Procedure 03/31/25 Pre-op Diagnosis Acute appendicitis Post-op Diagnosis Same Procedure Performed Laparoscopic appendectomy Surgeon Isaac Ryan MD Advertising Rep CHICHI Randhawa Anesthesia General Indications The patient is a 44-year-old female who presented to the emergency room complaining of 1 day history of worsening her lower abdominal pain which localized to the right lower quadrant the abdomen. Had a normal white blood cell count. CT scan abdomen pelvis was performed showing a dilated acutely inflamed appendix without evidence of perforation or periappendiceal abscess. She was brought to the operating now for a emergent laparoscopic appendectomy. Findings The patient had an acutely inflamed appendix without gangrenous changes or perforation. Description of Procedure After informed consent was obtained patient was brought to the operating room she was placed supine position and general endotracheal anesthesia was administered. A Gonzales catheter was placed decompress the bladder. The abdomen was then prepped and draped usual sterile fashion. A time-out was performed correctly identifying the patient as well as procedure to be performed. She was given a single dose of Zosyn in the emergency room for IV antibiotics. I 1st entered the abdomen left upper quadrant utilizing a 5mm Optiview port. Once inside the abdomen insufflated to adequate pneumoperitoneum of 15mmHg of CO2. I then placed additional trocar ports to include a 12mm periumbilical trocar port, a 5mm suprapubic trocar port, and a right lower quadrant trocar port. Working through all these trocar ports I was able to find the appendix in the right lower quadrant the abdomen. It was acutely inflamed with a fibropurulent exudate but no gangrenous changes of the appendix. The base of the appendix appeared to be viable without any evidence of gangrene. The laparoscopic grasper I held of the appendix to I could identify the base. I then attempted to make a defect through the mesoappendix at the base. I then proceeded to divide the mesoappendix with 2 firings with a 45mm Endo-NATAN stapler. This then allowed me to identify the base of the appendix and cecum very easily and then with very reload with a blue load to the Endo-NATAN stapler I divided the appendix flush with the cecum. The appendix was placed into a Endo-Catch bag and brought out through the periumbilical umbilical trocar port site. It was then passed off table sent to pathology for examination. I then irrigated out the right lower quadrant the abdomen and both staple lines. There is a small amount of general oozing of blood from the mesoappendix. The staple was treated electrocautery. I then paced Norm topical hemostatic agent onto the staple line to the mesoappendix. I then pulled the omentum over the staple line and Norm and then removed all the trocar ports under direct visualization. The abdomen was allowed to decompress. I irrigated all the port sites sterile saline solution hemostasis was good. The 12mm periumbilical trocar port fascial defect was then closed with 0 Vicryl suture at the fascial level. The skin edges in all the port sites were approximated utilizing a running subcuticular 4-0 Monocryl suture. Incisions were then cleaned the skin glue sterile dressings were applied. The patient tolerated the procedure well no complications. All sponges, needles, and instrument counts were correct at the end procedure. EBL was _25__cc. The patient was awakened and taken to recovery in stable and satisfactory condition. Implants None Estimated Blood Loss 25 Drains No Packing No Pathology Yes ( appendix to pathology) Complications No immediate complications Condition Stable Disposition Same day [facility] Billing Surgery - Charge Forward: Surgery Billing
== END 2025-03-31 18:38 | disposition home or self-care (01) ==
LOC: ANHED 14:31 → ANHSURGERY 14:49
PROVIDERS: Emergency Provider Physician Assistant; PCP Internal Medicine; Visit Provider Surgery
PROC: 0DTJ4ZZ Resection of Appendix, Percutaneous Endoscopic Approach (ICD-10-PCS; CPT 44970; principal; 2025-03-31 15:30)
DX: K35.32 Acute appendicitis with perforation, localized peritonitis, and gangrene, without abscess (principal); F17.290 Nicotine dependence, other tobacco product, uncomplicated
CPT/HCPCS: 44970; 88304; 96365; 99285; J0330; J1100; J2003; J2004; J2250; J2405; J2543; J2704; J3010; J7120